=== PATIENT | female | born 1945 | race Two or more races ===

== ENCOUNTER 2017-04-14 10:44 | Outpatient (CLI) | payer OTHER ==
[~2017-04-14 10:44] MED LIST: ALDACTONE25 MG PO; AMBIEN10 MG; AMBIEN10 MG PO; AVAPRO75 MG PO; BENADRYL50 MG; BUDEPRION XL300 MG PO; CALTRATE 600600 MG; CARAFATE1 G; CARDIZEM CD180 MG; CARDIZEM60 MG; CARDURA1 MG PO; COLACE100 MG; CORDARONE I.50 MG/ML; COUMADIN10 MG; COZAAR25 MG; ELIQUIS5 MG PO; FLEET ENEMA EX230 ML RECTAL; HALOPERIDOL0.5 MG PO; MIRALAX12 EA PO; MONOPRIL40 MG PO; NEURONTIN300 MG PO; NORFLEX 30MG30 MG/ML IM; PEPCID40 MG; PREVACID15 MG; PROTONIX40 MG; SIMVASTATIN40 MG; SPIRINOLACTONE; TAMBOCOR100 MG PO; TORADOL60 MG IM; XANAX0.25 MG; ZANTAC150 MG PO; ZANTAC300 MG; ZOCOR40 MG PO
== END 2017-04-14 14:39 | disposition home or self-care (01) ==
LOC: TOM 10:44 → SONOGRAMA 10:44
DX: I11.9 Hypertensive heart disease without heart failure (principal)

== ENCOUNTER 2017-04-14 11:38 | Outpatient (CLI) | payer OTHER | END 2017-04-14 14:40 | disposition home or self-care (01) | LOC: RAD 11:38 | DX: D80.9 Immunodeficiency with predominantly antibody defects, unspecified (principal) ==

== ENCOUNTER 2017-04-15 07:14 | Outpatient (CLI) | payer OTHER | END 2017-04-15 07:44 | disposition home or self-care (01) | LOC: NUCLEAR 07:14 | DX: I27.29 Other secondary pulmonary hypertension (principal); I50.32 Chronic diastolic (congestive) heart failure; I11.9 Hypertensive heart disease without heart failure ==

== ENCOUNTER → 2017-06-22 | Emergency (ER) | payer OTHER ==
[~2017-06-22] VITALS: Ht 167.6 cm; Wt 77.1 kg
== END | disposition home or self-care (01) ==
LOC: ER 00:41
DX: R07.89 Other chest pain (principal); R20.8 Other disturbances of skin sensation; F41.9 Anxiety disorder, unspecified; T46.5X1A Poisoning by other antihypertensive drugs, accidental (unintentional), initial encounter; Y92.89 Other specified places as the place of occurrence of the external cause

== ENCOUNTER → 2017-07-21 | Outpatient (CLI) | payer OTHER | END | disposition home or self-care (01) | LOC: RAD 13:31 | DX: R06.09 Other forms of dyspnea (principal); I51.7 Cardiomegaly ==

== ENCOUNTER → 2017-08-02 | Outpatient (CLI) | payer OTHER | END | disposition home or self-care (01) | LOC: SONOGRAMA 09:07 | DX: E03.8 Other specified hypothyroidism (principal); E04.1 Nontoxic single thyroid nodule ==

== ENCOUNTER → 2017-08-08 | Outpatient (CLI) | payer OTHER | END | disposition home or self-care (01) | LOC: MRI 07:45 | DX: K86.2 Cyst of pancreas (principal); K30 Functional dyspepsia; K21.9 Gastro-esophageal reflux disease without esophagitis; E80.4 Gilbert syndrome; K44.9 Diaphragmatic hernia without obstruction or gangrene | CPT/HCPCS: 74183; A9579 ==

== ENCOUNTER 2017-08-10 11:25 | Outpatient (CLI) | payer OTHER | END 2017-08-10 14:48 | disposition home or self-care (01) | LOC: MAMO-SONO 11:25 | DX: Z13.1 Encounter for screening for diabetes mellitus (principal); Z87.898 Personal history of other specified conditions; N60.11 Diffuse cystic mastopathy of right breast ==

== ENCOUNTER 2017-08-18 10:51 | Outpatient (CLI) | payer OTHER | END 2017-08-18 14:30 | disposition home or self-care (01) | LOC: RAD 10:51 | DX: J45.20 Mild intermittent asthma, uncomplicated (principal) ==

== ENCOUNTER 2017-11-16 13:53 | Outpatient (CLI) | payer OTHER | END 2017-11-16 17:00 | disposition home or self-care (01) | LOC: TOM 13:53 | DX: M54.2 Cervicalgia (principal); M43.22 Fusion of spine, cervical region; M47.22 Other spondylosis with radiculopathy, cervical region ==

== ENCOUNTER → 2017-11-24 | Outpatient (CLI) | payer OTHER | END | disposition home or self-care (01) | LOC: NUCLEAR 09:08 | DX: M54.2 Cervicalgia (principal); M43.22 Fusion of spine, cervical region; M47.22 Other spondylosis with radiculopathy, cervical region | CPT/HCPCS: 78315; 78320; A9503 ==

== ENCOUNTER → 2018-01-16 | Outpatient (CLI) | payer OTHER | END | disposition home or self-care (01) | LOC: MRI 14:35 | DX: M54.5 Low back pain (principal); M54.16 Radiculopathy, lumbar region | CPT/HCPCS: 72148 ==

== ENCOUNTER 2018-01-19 07:13 | Day surgery (SDC) | payer OTHER | END 2018-01-19 10:40 | disposition home or self-care (01) | LOC: AMB-ENDOS 07:13 | DX: D12.4 Benign neoplasm of descending colon (principal); D12.8 Benign neoplasm of rectum ==

== ENCOUNTER 2018-01-23 13:03 | Outpatient (CLI) | payer OTHER | END 2018-01-23 13:08 | disposition home or self-care (01) | LOC: SONOGRAMA 13:03 | DX: N60.11 Diffuse cystic mastopathy of right breast (principal); N60.12 Diffuse cystic mastopathy of left breast ==

== ENCOUNTER 2018-02-20 15:06 | Outpatient (CLI) | payer OTHER | END 2018-02-20 15:14 | disposition home or self-care (01) | LOC: RAD 15:06 | DX: Z01.818 Encounter for other preprocedural examination (principal) ==

== ENCOUNTER 2018-03-20 09:41 | Outpatient (CLI) | payer OTHER | END 2018-03-20 15:00 | disposition home or self-care (01) | LOC: TOM 09:41 | DX: K62.5 Hemorrhage of anus and rectum (principal); K64.2 Third degree hemorrhoids; K58.1 Irritable bowel syndrome with constipation; K57.30 Diverticulosis of large intestine without perforation or abscess without bleeding; R15.2 Fecal urgency ==

== ENCOUNTER 2018-07-07 13:07 | Outpatient (CLI) | payer OTHER | END 2018-07-07 13:10 | disposition home or self-care (01) | LOC: RAD 13:07 | DX: J44.9 Chronic obstructive pulmonary disease, unspecified (principal) ==

== ENCOUNTER 2018-08-15 14:54 | Outpatient (CLI) | payer OTHER | END 2018-08-15 14:57 | disposition home or self-care (01) | LOC: MRI 14:54 | DX: M17.12 Unilateral primary osteoarthritis, left knee (principal) | CPT/HCPCS: 73721 ==

== ENCOUNTER → 2018-09-07 | Outpatient (CLI) | payer OTHER | END | disposition home or self-care (01) | LOC: MAMO-SONO 14:11 | DX: Z12.31 Encounter for screening mammogram for malignant neoplasm of breast (principal); N60.11 Diffuse cystic mastopathy of right breast; Z87.898 Personal history of other specified conditions ==

== ENCOUNTER 2018-11-10 09:02 | Outpatient (CLI) | payer OTHER | END 2018-11-10 09:08 | disposition home or self-care (01) | LOC: MAMO-SONO 09:02 → SONOGRAMA 09:02 | DX: R10.84 Generalized abdominal pain (principal); D49.0 Neoplasm of unspecified behavior of digestive system; R11.0 Nausea ==

== ENCOUNTER 2018-12-14 06:30 | Day surgery (SDC) | payer OTHER | END 2018-12-14 11:07 | disposition home or self-care (01) | LOC: AMB-ENDOS 06:30 | DX: D12.0 Benign neoplasm of cecum (principal); D12.2 Benign neoplasm of ascending colon ==

== ENCOUNTER 2019-02-02 00:14 | Emergency (ER) | payer OTHER ==
[~2019-02-02] VITALS: Ht 167.6 cm; Wt 86.2 kg
[2019-02-02] MEDS ORDERED: TOPROL XL50 M1 (00:27)
[2019-02-02] MEDS ORDERED: NEURONTIN800 MG (00:27)
[2019-02-02] MEDS ORDERED: NEXIUM20 M1 (00:27)
[2019-02-02] MEDS ORDERED: NORVASC5 MG (00:28)
[2019-02-02] MEDS ORDERED: ELIQUIS5 MG (00:30)
== END 2019-02-02 07:55 | disposition home or self-care (01) ==
LOC: ER 00:14
DX: N39.0 Urinary tract infection, site not specified (principal); M54.5 Low back pain

== ENCOUNTER 2019-03-14 11:58 | Outpatient (CLI) | payer OTHER ==
[~2019-03-14 11:58] MED LIST changes: +ELIQUIS5 MG; +NEURONTIN800 MG; +NEXIUM20 M1; +NORVASC5 MG; +TOPROL XL50 M1
== END 2019-03-14 16:13 | disposition home or self-care (01) ==
LOC: MRI 11:58
DX: M12.861 Other specific arthropathies, not elsewhere classified, right knee (principal); M12.862 Other specific arthropathies, not elsewhere classified, left knee; M43.17 Spondylolisthesis, lumbosacral region
CPT/HCPCS: 72158; 76881; A9575; 72148

== ENCOUNTER 2019-03-23 12:05 | Outpatient (CLI) | payer OTHER | END 2019-03-23 14:20 | disposition home or self-care (01) | LOC: RAD 12:05 | DX: M12.871 Other specific arthropathies, not elsewhere classified, right ankle and foot (principal) ==

== ENCOUNTER → 2019-04-12 | Outpatient (CLI) | payer OTHER | END | disposition home or self-care (01) | LOC: RAD 11:10 | DX: M54.2 Cervicalgia (principal) ==

== ENCOUNTER 2019-05-03 10:11 | Outpatient (CLI) | payer OTHER | END 2019-05-03 15:30 | disposition home or self-care (01) | LOC: MRI 10:11 | DX: D49.0 Neoplasm of unspecified behavior of digestive system (principal) | CPT/HCPCS: 74183; A9575; 74182 ==

== ENCOUNTER → 2019-05-30 | Outpatient (CLI) | payer OTHER | END | disposition home or self-care (01) | LOC: MRI 13:05 | DX: M23.222 Derangement of posterior horn of medial meniscus due to old tear or injury, left knee (principal); M25.562 Pain in left knee | CPT/HCPCS: 73721 ==

== ENCOUNTER 2019-06-25 12:30 | Outpatient (CLI) | payer OTHER | END 2019-06-25 16:18 | disposition home or self-care (01) | LOC: RAD 12:30 | DX: Z12.31 Encounter for screening mammogram for malignant neoplasm of breast (principal); Z12.39 Encounter for other screening for malignant neoplasm of breast ==

== ENCOUNTER 2019-06-25 13:15 | Outpatient (CLI) | payer OTHER | END 2019-06-25 13:25 | disposition home or self-care (01) | LOC: LAB 13:15 | DX: D68.8 Other specified coagulation defects (principal); E78.2 Mixed hyperlipidemia; N39.0 Urinary tract infection, site not specified; I10 Essential (primary) hypertension ==

== ENCOUNTER → 2019-09-13 | Outpatient (CLI) | payer OTHER | END | disposition home or self-care (01) | LOC: MAMO-SONO 09:45 → SONOGRAMA 09:50 → MAMO-SONO 10:45 | PROVIDERS: ATTEND Internal Medicine Gastroenterology | DX: R10.84 Generalized abdominal pain (principal) ==

== ENCOUNTER 2019-10-04 09:16 | Outpatient (CLI) | payer OTHER | END 2019-10-04 09:26 | disposition home or self-care (01) | LOC: NUCLEAR 09:16 | PROVIDERS: ATTEND Thoracic Surgery (Cardiothoracic Vascular Surgery) | DX: I73.9 Peripheral vascular disease, unspecified (principal) ==

== ENCOUNTER → 2019-10-04 | Outpatient (CLI) | payer OTHER | END | disposition home or self-care (01) | LOC: SONOGRAMA 10:28 | PROVIDERS: ATTEND Internal Medicine Sports Medicine | DX: E04.2 Nontoxic multinodular goiter (principal) ==

== ENCOUNTER 2019-11-13 13:35 | Outpatient (CLI) | payer OTHER | END 2019-11-13 13:39 | disposition home or self-care (01) | LOC: SONOGRAMA 13:35 | PROVIDERS: ATTEND Physical Medicine & Rehabilitation | DX: M75.111 Incomplete rotator cuff tear or rupture of right shoulder, not specified as traumatic (principal) ==

== ENCOUNTER 2019-12-27 10:51 | Inpatient (IN) | payer OTHER ==
[~2019-12-27] VITALS: Ht 167.6 cm; Wt 93.9 kg
[2019-12-28] MEDS ORDERED: GASTRACE CAPSU1 EACH (08:54)
== END 2020-01-15 12:50 | disposition home or self-care (01) | DRG 189 ==
LOC: ER 10:51 → SEC-K 19:59 → MEDJ 12-28 16:44
PROVIDERS: ADMIT Internal Medicine Cardiovascular Disease; ATTEND Internal Medicine Cardiovascular Disease
PROC: BW24ZZZ Computerized Tomography (CT Scan) of Chest and Abdomen (ICD-10-PCS; principal; 2019-12-27)
PROC: 4A033R1 Measurement of Arterial Saturation, Peripheral, Percutaneous Approach (ICD-10-PCS; 2019-12-27)
PROC: 3E0F7GC Introduction of Other Therapeutic Substance into Respiratory Tract, Via Natural or Artificial Opening (ICD-10-PCS; 2019-12-27)
PROC: BW21ZZZ Computerized Tomography (CT Scan) of Abdomen and Pelvis (ICD-10-PCS; 2019-12-28)
PROC: B246ZZZ Ultrasonography of Right and Left Heart (ICD-10-PCS; 2019-12-31)
PROC: BW40ZZZ Ultrasonography of Abdomen (ICD-10-PCS; 2020-01-03)
PROC: 02HV33Z Insertion of Infusion Device into Superior Vena Cava, Percutaneous Approach (ICD-10-PCS; 2020-01-06)
PROC: BB24ZZZ Computerized Tomography (CT Scan) of Bilateral Lungs (ICD-10-PCS; 2020-01-12)
PROC: BW21ZZZ Computerized Tomography (CT Scan) of Abdomen and Pelvis (ICD-10-PCS; 2020-01-12)
DX: J81.0 Acute pulmonary edema (principal); J90 Pleural effusion, not elsewhere classified; K86.1 Other chronic pancreatitis; N39.0 Urinary tract infection, site not specified; I43 Cardiomyopathy in diseases classified elsewhere; I48.91 Unspecified atrial fibrillation; I11.9 Hypertensive heart disease without heart failure; E04.2 Nontoxic multinodular goiter; D64.9 Anemia, unspecified; D53.1 Other megaloblastic anemias, not elsewhere classified; R07.89 Other chest pain; R10.32 Left lower quadrant pain; K57.30 Diverticulosis of large intestine without perforation or abscess without bleeding; K21.9 Gastro-esophageal reflux disease without esophagitis; K29.70 Gastritis, unspecified, without bleeding; K52.89 Other specified noninfective gastroenteritis and colitis; M54.5 Low back pain; M17.0 Bilateral primary osteoarthritis of knee; R50.9 Fever, unspecified; Z20.828 Contact with and (suspected) exposure to other viral communicable diseases; Z79.01 Long term (current) use of anticoagulants

== ENCOUNTER 2020-02-08 14:59 | Outpatient (CLI) | payer OTHER ==
[~2020-02-08 14:59] MED LIST changes: +GASTRACE CAPSU1 EACH
== END 2020-02-08 19:00 | disposition home or self-care (01) ==
LOC: TOM 14:59
PROVIDERS: ATTEND Internal Medicine Pulmonary Disease
DX: J90 Pleural effusion, not elsewhere classified (principal); R06.02 Shortness of breath

== ENCOUNTER → 2020-03-04 | Outpatient (CLI) | payer OTHER | END | disposition home or self-care (01) | LOC: RAD 03-03 12:15 | PROVIDERS: ATTEND Physical Medicine & Rehabilitation | DX: M19.042 Primary osteoarthritis, left hand (principal) ==

== ENCOUNTER 2020-03-17 11:59 | Outpatient (CLI) | payer OTHER | END 2020-03-17 13:54 | disposition home or self-care (01) | LOC: NUCLEAR 11:59 | PROVIDERS: ATTEND Physical Medicine & Rehabilitation | DX: I82.401 Acute embolism and thrombosis of unspecified deep veins of right lower extremity (principal); R22.41 Localized swelling, mass and lump, right lower limb ==

== ENCOUNTER → 2020-05-20 | Outpatient (CLI) | payer OTHER | END | disposition home or self-care (01) | LOC: RAD 13:36 | PROVIDERS: ATTEND Physical Medicine & Rehabilitation | DX: M17.12 Unilateral primary osteoarthritis, left knee (principal); M16.12 Unilateral primary osteoarthritis, left hip ==

== ENCOUNTER → 2020-05-27 | Outpatient (CLI) | payer OTHER | END | disposition home or self-care (01) | LOC: RAD 14:30 | PROVIDERS: ATTEND Internal Medicine | DX: I51.7 Cardiomegaly (principal); I50.32 Chronic diastolic (congestive) heart failure ==

== ENCOUNTER → 2020-06-04 | Outpatient (CLI) | payer OTHER | END | disposition home or self-care (01) | LOC: TOM 11:26 | PROVIDERS: ATTEND Internal Medicine Cardiovascular Disease | DX: K86.2 Cyst of pancreas (principal); R10.84 Generalized abdominal pain; K57.90 Diverticulosis of intestine, part unspecified, without perforation or abscess without bleeding ==

== ENCOUNTER 2020-06-30 15:32 | Outpatient (CLI) | payer OTHER | END 2020-06-30 15:40 | disposition home or self-care (01) | LOC: RAD 15:32 | PROVIDERS: ATTEND Physical Medicine & Rehabilitation | DX: M54.6 Pain in thoracic spine (principal); M54.5 Low back pain ==

== ENCOUNTER → 2020-07-04 | Outpatient (CLI) | payer OTHER | END | disposition home or self-care (01) | LOC: RAD 13:48 | PROVIDERS: ATTEND Internal Medicine | DX: I50.32 Chronic diastolic (congestive) heart failure (principal) ==

== ENCOUNTER → 2020-07-08 | Outpatient (CLI) | payer OTHER | END | disposition home or self-care (01) | LOC: NUCLEAR 15:02 | PROVIDERS: ATTEND Internal Medicine Rheumatology | DX: M81.0 Age-related osteoporosis without current pathological fracture (principal) ==

== ENCOUNTER 2020-07-10 13:48 | Outpatient (CLI) | payer OTHER | END 2020-07-10 14:04 | disposition home or self-care (01) | LOC: MAMO-SONO 13:48 | PROVIDERS: ATTEND Obstetrics & Gynecology | DX: Z12.31 Encounter for screening mammogram for malignant neoplasm of breast (principal); N60.11 Diffuse cystic mastopathy of right breast ==

== ENCOUNTER → 2020-08-14 | Outpatient (CLI) | payer OTHER | END | disposition home or self-care (01) | LOC: TOM 13:55 | PROVIDERS: ATTEND Internal Medicine Pulmonary Disease | DX: R06.02 Shortness of breath (principal); R91.1 Solitary pulmonary nodule ==

== ENCOUNTER 2020-11-03 14:31 | Outpatient (CLI) | payer OTHER | END 2020-11-03 14:36 | disposition home or self-care (01) | LOC: SONOGRAMA 14:31 | PROVIDERS: ATTEND Internal Medicine Sports Medicine | DX: E04.2 Nontoxic multinodular goiter (principal) ==

== ENCOUNTER 2020-12-25 07:54 | Outpatient (CLI) | payer OTHER | END 2020-12-25 08:15 | disposition home or self-care (01) | LOC: SONOGRAMA 07:54 → MAMO-SONO 08:00 → SONOGRAMA 08:15 | PROVIDERS: ATTEND Specialist/Technologist, Other Nephrology | DX: K86.2 Cyst of pancreas (principal); Q51.818 Other congenital malformations of uterus; R10.84 Generalized abdominal pain; R31.29 Other microscopic hematuria ==

== ENCOUNTER 2021-01-31 17:39 | Emergency (ER) | payer OTHER ==
[~2021-01-31] VITALS: Ht 167.6 cm; Wt 95.7 kg
[2021-01-31] MEDS ORDERED: NEURONTIN600 M1 (18:05)
[2021-01-31] MEDS ORDERED: BENICAR40 MG (18:06)
[2021-01-31] MEDS ORDERED: INTESTINEX680 M1 (18:06)
[2021-01-31] MEDS ORDERED: CARDURA8 MG (18:07)
== END 2021-01-31 21:33 | disposition home or self-care (01) ==
LOC: ER 17:39
DX: K52.89 Other specified noninfective gastroenteritis and colitis (principal); E86.0 Dehydration; E87.8 Other disorders of electrolyte and fluid balance, not elsewhere classified

== ENCOUNTER → 2021-03-02 11:42 | Outpatient (CLI) | payer OTHER ==
[~2021-03-02 11:42] MED LIST changes: +BENICAR40 MG; +CARDURA8 MG; +INTESTINEX680 M1; +NEURONTIN600 M1
== END | disposition home or self-care (01) ==
LOC: NUCLEAR 11:42
PROVIDERS: ATTEND Internal Medicine Cardiovascular Disease
DX: I87.2 Venous insufficiency (chronic) (peripheral) (principal)

== ENCOUNTER 2021-03-02 13:02 | Outpatient (CLI) | payer OTHER | END 2021-03-02 13:15 | disposition home or self-care (01) | LOC: SONOGRAMA 13:02 | PROVIDERS: ATTEND Internal Medicine Cardiovascular Disease | DX: M77.31 Calcaneal spur, right foot (principal); M12.88 Other specific arthropathies, not elsewhere classified, other specified site; M46.47 Discitis, unspecified, lumbosacral region ==

== ENCOUNTER 2021-04-21 10:48 | Outpatient (CLI) | payer OTHER | END 2021-04-21 10:55 | disposition home or self-care (01) | LOC: TOM 10:48 | PROVIDERS: ATTEND Internal Medicine Gastroenterology | DX: K57.90 Diverticulosis of intestine, part unspecified, without perforation or abscess without bleeding (principal); Q45.3 Other congenital malformations of pancreas and pancreatic duct; R10.84 Generalized abdominal pain ==

== ENCOUNTER 2021-07-06 09:00 | Outpatient (CLI) | payer OTHER | END 2021-07-06 09:15 | disposition home or self-care (01) | LOC: PPH VACUNA 09:00 | PROVIDERS: ATTEND Emergency Medicine Pediatric Emergency Medicine | DX: Z23 Encounter for immunization (principal) ==

== ENCOUNTER 2021-07-29 15:08 | Outpatient (CLI) | payer OTHER | END 2021-07-29 15:20 | disposition home or self-care (01) | LOC: RAD 15:08 | PROVIDERS: ATTEND Physical Medicine & Rehabilitation | DX: M54.50 Low back pain, unspecified (principal) ==

== ENCOUNTER 2021-08-28 10:18 | Outpatient (CLI) | payer OTHER | END 2021-08-28 10:40 | disposition home or self-care (01) | LOC: TOM 10:18 | PROVIDERS: ATTEND Internal Medicine Pulmonary Disease | DX: R91.1 Solitary pulmonary nodule (principal); R06.02 Shortness of breath; M46.47 Discitis, unspecified, lumbosacral region ==

== ENCOUNTER 2021-09-21 12:16 | Inpatient (IN) | payer OTHER ==
[~2021-09-21] VITALS: Ht 157.5 cm; Wt 99.3 kg
[2021-09-21] MEDS ORDERED: TOPROL XL50 M1 PO (12:35)
[2021-09-21] MEDS ORDERED: NORVASC5 MG PO (12:36)
[2021-09-21] MEDS ORDERED: CLONAZEPAM0.5 M1 PO (12:36)
[2021-09-21] MEDS ORDERED: ELIQUIS5 MG PO (12:38)
[2021-09-22] MEDS ORDERED: GABAPENTIN400 MG (08:45)
[2021-09-22] MEDS ORDERED: ESOMEPRAZOLE MA40 MG (08:47)
== END 2021-10-01 21:35 | disposition home or self-care (01) | DRG 603 ==
LOC: EMR PED 12:16 → ER 12:16 → MEDI 15:24
PROVIDERS: ADMIT Specialist; ATTEND Specialist
PROC: B54DZZZ Ultrasonography of Bilateral Lower Extremity Veins (ICD-10-PCS; 2021-09-21)
PROC: B44HZZZ Ultrasonography of Bilateral Lower Extremity Arteries (ICD-10-PCS; principal; 2021-09-23)
DX: L03.115 Cellulitis of right lower limb (principal); I83.215 Varicose veins of right lower extremity with both ulcer other part of foot and inflammation; Z68.41 Body mass index [BMI] 40.0-44.9, adult; R60.0 Localized edema; I11.9 Hypertensive heart disease without heart failure; I48.91 Unspecified atrial fibrillation; E66.01 Morbid (severe) obesity due to excess calories; Z20.822 Contact with and (suspected) exposure to COVID-19

== ENCOUNTER 2021-11-09 15:24 | Outpatient (CLI) | payer OTHER ==
[~2021-11-09 15:24] MED LIST changes: +CLONAZEPAM0.5 M1 PO; +ESOMEPRAZOLE MA40 MG; +GABAPENTIN400 MG; +NORVASC5 MG PO; +TOPROL XL50 M1 PO
== END 2021-11-09 16:00 | disposition home or self-care (01) ==
LOC: RAD 15:24
PROVIDERS: ATTEND Physical Medicine & Rehabilitation
DX: M25.511 Pain in right shoulder (principal); M25.512 Pain in left shoulder

== ENCOUNTER 2021-11-10 12:05 | Outpatient (CLI) | payer OTHER | END 2021-11-10 12:09 | disposition home or self-care (01) | LOC: LAB 12:05 | PROVIDERS: ATTEND Specialist | DX: L97.919 Non-pressure chronic ulcer of unspecified part of right lower leg with unspecified severity (principal) ==

== ENCOUNTER 2021-12-25 12:39 | Outpatient (CLI) | payer OTHER | END 2021-12-25 15:53 | disposition home or self-care (01) | LOC: RAD 12:39 | PROVIDERS: ATTEND Specialist | DX: M47.812 Spondylosis without myelopathy or radiculopathy, cervical region (principal); M51.36 Other intervertebral disc degeneration, lumbar region ==

== ENCOUNTER 2021-12-30 09:31 | Outpatient (CLI) | payer OTHER | END 2021-12-30 15:50 | disposition home or self-care (01) | LOC: TOM 09:31 | PROVIDERS: ATTEND Specialist | DX: M48.02 Spinal stenosis, cervical region (principal); M47.812 Spondylosis without myelopathy or radiculopathy, cervical region ==

== ENCOUNTER 2022-02-11 08:05 | Outpatient (CLI) | payer OTHER | END 2022-02-11 08:06 | disposition home or self-care (01) | LOC: NUCLEAR 08:05 | PROVIDERS: ATTEND Thoracic Surgery (Cardiothoracic Vascular Surgery) | DX: I87.2 Venous insufficiency (chronic) (peripheral) (principal); Z88.1 Allergy status to other antibiotic agents; Z91.011 Allergy to milk products ==

== ENCOUNTER 2022-05-04 16:41 | Inpatient (IN) | payer OTHER ==
[~2022-05-04] VITALS: Ht 152.4 cm; Wt 127.0 kg
== END 2022-06-18 13:24 | disposition home health service (06) | DRG 570 ==
LOC: ER 16:41 → MEDI 18:49
PROVIDERS: ADMIT Internal Medicine; ATTEND Internal Medicine
PROC: B44HZZZ Ultrasonography of Bilateral Lower Extremity Arteries (ICD-10-PCS; 2022-05-04)
PROC: 0JBN0ZZ Excision of Right Lower Leg Subcutaneous Tissue and Fascia, Open Approach (ICD-10-PCS; principal; 2022-05-05)
PROC: 30233N1 Transfusion of Nonautologous Red Blood Cells into Peripheral Vein, Percutaneous Approach (ICD-10-PCS; 2022-05-06)
PROC: 0JDN0ZZ Extraction of Right Lower Leg Subcutaneous Tissue and Fascia, Open Approach (ICD-10-PCS; 2022-05-12)
PROC: 0JDN0ZZ Extraction of Right Lower Leg Subcutaneous Tissue and Fascia, Open Approach (ICD-10-PCS; 2022-05-19)
PROC: 02H633Z Insertion of Infusion Device into Right Atrium, Percutaneous Approach (ICD-10-PCS; 2022-05-20)
PROC: 0JDN0ZZ Extraction of Right Lower Leg Subcutaneous Tissue and Fascia, Open Approach (ICD-10-PCS; 2022-05-26)
PROC: 30243N1 Transfusion of Nonautologous Red Blood Cells into Central Vein, Percutaneous Approach (ICD-10-PCS; 2022-05-27)
PROC: BW2110Z Computerized Tomography (CT Scan) of Abdomen and Pelvis using Low Osmolar Contrast, Unenhanced and Enhanced (ICD-10-PCS; 2022-05-28)
PROC: 0JDN0ZZ Extraction of Right Lower Leg Subcutaneous Tissue and Fascia, Open Approach (ICD-10-PCS; 2022-06-02)
PROC: 0JDN0ZZ Extraction of Right Lower Leg Subcutaneous Tissue and Fascia, Open Approach (ICD-10-PCS; 2022-06-09)
PROC: 4A12X4Z Monitoring of Cardiac Electrical Activity, External Approach (ICD-10-PCS; 2022-06-12)
PROC: 0JDN0ZZ Extraction of Right Lower Leg Subcutaneous Tissue and Fascia, Open Approach (ICD-10-PCS; 2022-06-16)
DX: L03.115 Cellulitis of right lower limb (principal); D60.8 Other acquired pure red cell aplasias; D61.1 Drug-induced aplastic anemia; D61.811 Other drug-induced pancytopenia; E87.1 Hypo-osmolality and hyponatremia; I13.0 Hypertensive heart and chronic kidney disease with heart failure and stage 1 through stage 4 chronic kidney disease, or unspecified chronic kidney disease; Z68.42 Body mass index [BMI] 45.0-49.9, adult; I50.32 Chronic diastolic (congestive) heart failure; I96 Gangrene, not elsewhere classified; I48.20 Chronic atrial fibrillation, unspecified; E27.49 Other adrenocortical insufficiency; J91.8 Pleural effusion in other conditions classified elsewhere; J81.1 Chronic pulmonary edema; L97.519 Non-pressure chronic ulcer of other part of right foot with unspecified severity; S81.011A Laceration without foreign body, right knee, initial encounter; I87.2 Venous insufficiency (chronic) (peripheral); D64.9 Anemia, unspecified; K58.0 Irritable bowel syndrome with diarrhea; E83.42 Hypomagnesemia; E87.6 Hypokalemia; E83.39 Other disorders of phosphorus metabolism; B37.2 Candidiasis of skin and nail; R59.0 Localized enlarged lymph nodes; S30.1XXA Contusion of abdominal wall, initial encounter; R53.81 Other malaise; N18.9 Chronic kidney disease, unspecified; G47.33 Obstructive sleep apnea (adult) (pediatric); E66.09 Other obesity due to excess calories; G62.9 Polyneuropathy, unspecified; Z53.29 Procedure and treatment not carried out because of patient's decision for other reasons; B96.5 Pseudomonas (aeruginosa) (mallei) (pseudomallei) as the cause of diseases classified elsewhere; B95.2 Enterococcus as the cause of diseases classified elsewhere; B96.6 Bacteroides fragilis [B. fragilis] as the cause of diseases classified elsewhere; B96.89 Other specified bacterial agents as the cause of diseases classified elsewhere; W01.0XXA Fall on same level from slipping, tripping and stumbling without subsequent striking against object, initial encounter; Y93.9 Activity, unspecified; Y92.513 Shop (commercial) as the place of occurrence of the external cause; Z88.1 Allergy status to other antibiotic agents; Z79.01 Long term (current) use of anticoagulants; Z91.81 History of falling

== ENCOUNTER 2022-10-13 09:37 | Outpatient (CLI) | payer OTHER | END 2022-10-13 09:39 | disposition home or self-care (01) | LOC: NUCLEAR 09:37 | PROVIDERS: ATTEND Internal Medicine Hematology & Oncology | DX: M15.0 Primary generalized (osteo)arthritis (principal) | CPT/HCPCS: 78315; A9503 ==

== ENCOUNTER 2022-10-29 13:20 | Outpatient (CLI) | payer OTHER | END 2022-10-29 13:35 | disposition home or self-care (01) | LOC: PPH VACUNA 13:20 | PROVIDERS: ATTEND Emergency Medicine Pediatric Emergency Medicine | DX: Z23 Encounter for immunization (principal) ==

== ENCOUNTER 2022-12-14 13:53 | Outpatient (CLI) | payer OTHER | END 2022-12-14 14:00 | disposition home or self-care (01) | LOC: TOM 13:53 | PROVIDERS: ATTEND Psychiatry & Neurology Clinical Neurophysiology | DX: D32.0 Benign neoplasm of cerebral meninges (principal) ==

== ENCOUNTER 2023-01-03 11:43 | Outpatient (CLI) | payer OTHER | END 2023-01-03 14:20 | disposition home or self-care (01) | LOC: SONOGRAMA 11:43 | PROVIDERS: ATTEND Specialist | DX: S86.111A Strain of other muscle(s) and tendon(s) of posterior muscle group at lower leg level, right leg, initial encounter (principal); S86.811A Strain of other muscle(s) and tendon(s) at lower leg level, right leg, initial encounter ==

== ENCOUNTER 2023-01-25 14:53 | Outpatient (CLI) | payer OTHER | END 2023-01-25 14:59 | disposition home or self-care (01) | LOC: RAD 14:53 | PROVIDERS: ATTEND Internal Medicine | DX: M54.59 Other low back pain (principal) ==

== ENCOUNTER 2023-02-02 13:52 | Outpatient (CLI) | payer OTHER | END 2023-02-02 14:20 | disposition home or self-care (01) | LOC: SONOGRAMA 13:52 | PROVIDERS: ATTEND Internal Medicine | DX: R10.9 Unspecified abdominal pain (principal); N18.30 Chronic kidney disease, stage 3 unspecified; R31.9 Hematuria, unspecified; E04.1 Nontoxic single thyroid nodule; E04.9 Nontoxic goiter, unspecified ==

== ENCOUNTER 2023-04-25 07:14 | Outpatient (CLI) | payer OTHER | END 2023-04-25 11:06 | disposition home or self-care (01) | LOC: TOM 07:14 | PROVIDERS: ATTEND Internal Medicine Gastroenterology | DX: R10.11 Right upper quadrant pain (principal); R10.31 Right lower quadrant pain ==

== ENCOUNTER → 2023-04-28 | Outpatient (CLI) | payer OTHER | END | disposition home or self-care (01) | LOC: RAD 14:40 | PROVIDERS: ATTEND Surgery | DX: K64.2 Third degree hemorrhoids (principal); K58.1 Irritable bowel syndrome with constipation; K57.30 Diverticulosis of large intestine without perforation or abscess without bleeding; N81.6 Rectocele; Z86.010 Personal history of colon polyps ==

== ENCOUNTER 2023-04-29 12:42 | Outpatient (CLI) | payer OTHER | END 2023-04-29 14:08 | disposition home or self-care (01) | LOC: EKG 12:42 | PROVIDERS: ATTEND Surgery | DX: I10 Essential (primary) hypertension (principal) ==

== ENCOUNTER 2023-05-18 06:14 | Day surgery (SDC) | payer OTHER ==
[~2023-05-18 06:14] MED LIST changes: +CARDURA8 MG PO; +CLONAZEPAM1 M1 PO; +PEPCID AC20 MG PO
[2023-05-18] MEDS ORDERED: POVIDONE-IODINE 118 ML BOTT TOP ONE (06:59)
[2023-05-18] MEDS ORDERED: METRONIDAZOLE/SODIUM CHLORIDE 500 MG/100 ML PIGGYBACK IV ONE ×2 (06:59→08:00)
[2023-05-18] MEDS ORDERED: CEFTRIAXONE SODIUM 2,000 MG VIAL ONE (07:00)
[2023-05-18] MEDS ORDERED: DIBUCAINE 15 GM OINT..GM. TUBE ONE (07:00)
[2023-05-18] MEDS ORDERED: HEMOSTATIC MATRIX 1 KIT KIT TOP ONE ×2 (07:00→08:00)
[2023-05-18] MEDS ORDERED: BUPIVACAINE LIPOSOME/PF 266 MG/20 ML VIAL IJ ONE ×2 (07:56→08:00)
[2023-05-18] MEDS ORDERED: CEFTRIAXONE SODIUM 2,000 MG VIAL IV ONE (08:00)
[2023-05-18] MEDS ORDERED: DIBUCAINE 15 GM OINT..GM. TUBE RECTAL ONE (08:00)
== END 2023-05-18 12:45 | disposition home or self-care (01) ==
LOC: CIR.AMB 06:14
PROVIDERS: ATTEND Surgery
DX: K64.2 Third degree hemorrhoids (principal); K64.8 Other hemorrhoids; K64.4 Residual hemorrhoidal skin tags; K62.5 Hemorrhage of anus and rectum; Z91.011 Allergy to milk products; Z88.8 Allergy status to other drugs, medicaments and biological substances

== ENCOUNTER 2023-05-29 14:07 | Inpatient (IN) | payer OTHER ==
[~2023-05-29] VITALS: Ht 152.4 cm; Wt 136.1 kg
[2023-05-29] MEDS ORDERED: BUMETANIDE1 MG (14:25)
[2023-05-29] MEDS ORDERED: LASIX20 MG PO (14:48)
[2023-05-29] MEDS ORDERED: SYMAX0.125 MG PO (14:51)
[2023-05-29] MEDS ORDERED: ZANAFLEX4 M1 PO (14:52)
[2023-05-29] MEDS ORDERED: PHENERGAN25 MG PO (14:56)
[2023-05-29] MEDS ORDERED: SINGULAIR10 MG PO (14:56)
[2023-05-29] MEDS ORDERED: NORVASC2.5 M1 PO (14:57)
[2023-05-29] MEDS ORDERED: NU-MAG71.5 MG PO (14:57)
[2023-05-29] MEDS ORDERED: DOLOGESIC 500-1 EACH PO (14:57)
[2023-05-29] MEDS ORDERED: AMLODIPINE BESYL5 MG PO (14:58)
[2023-05-29 15:59] LABS: HEMOGLOBIN 12.9 g/dL (12.0-15.00); MEAN CELL VOLUME 90.3 fL (80.00-100.00); MEAN CORPUSCULAR HEMOGLOBIN 31.5 pg (27.00-32.0); MEAN CORPUSCULAR HGB CONC 34.8 g/dl (32.0-36.0); PLATELET COUNT 176 K/uL (150-450); RED CELL DISTRIBUTION WIDTH 17.6 % (11.5-14.5)
[2023-05-29 16:21] LABS: ALBUMIN 3.1 gm/dL (3.4-5.0); BILIRUBIN TOTAL 3.73 mg/dL (0.3-1.2); BILIRUBIN,CONJUGATED 0.81 mg/dL (0.0-0.2); BILIRUBIN,UNCONJUGATED 2.92 mg/dL (0.0-0.6); CALCIUM 9.2 mg/dL (8.5-10.1); CREATININE SERUM 1.03 mg/dL (0.55-1.02); GFR 51.82; POTASSIUM 4.11 mEq/L (3.5-5.1); TOTAL PROTEIN 6.2 gm/dL (6.4-8.2)
[2023-05-29] MEDS ORDERED: 0.9 % SODIUM CHLORIDE 1,000 ML IV SCH ×2 (21:00→23:45)
[2023-05-29] MEDS ORDERED: ACETAMINOPHEN 500 MG GEL..CAP PO PRN (23:45)
[2023-05-29] MEDS ORDERED: ONDANSETRON HCL 4 MG in 0.9 % SODIUM CHLORIDE 50 ML IV PRN (23:45)
[2023-05-29] MEDS ORDERED: VANCOMYCIN HCL 1,000 MG VIAL IV SCH (23:49)
[2023-05-29] MEDS ORDERED: CEFEPIME HCL 1,000 MG in 0.9 % SODIUM CHLORIDE 50 ML IV SCH (23:50)
[2023-05-30 01:26] LABS: ABG PH 7.447 (7.35-7.45); ABG PO2 107.3 mmHg (80-100); BASE EXCESS -2.5 mmol/l; BICARBONATE 20.3 mmol/l (23-25); SaO2 98.3 %; Tco2 21.2 mmol/l; allen test SATISFACTORY; o2 21 %; puncture site RADIAL LEFT
[2023-05-30 02:08] LABS: INR 1.14; PARTIAL THROMBOPLASTIN TIME 27.3 SECONDS (22.0-34.0); PROTHROMBIN TIME 11.9 SECONDS (9.0-11.5)
[2023-05-30 06:33] LABS: HEMATOCRIT 32.8 % (36.0-45.00); HEMOGLOBIN 11.5 g/dL (12.0-15.00); MEAN CELL VOLUME 90.4 fL (80.00-100.00); MEAN CORPUSCULAR HEMOGLOBIN 31.7 pg (27.00-32.0); MEAN CORPUSCULAR HGB CONC 35.1 g/dl (32.0-36.0); PLATELET COUNT 169 K/uL (150-450); RED BLOOD COUNT 3.63 M/uL (4.00-6.00); RED CELL DISTRIBUTION WIDTH 16.7 % (11.5-14.5)
[2023-05-30 07:22] LABS: ALBUMIN 2.6 gm/dL (3.4-5.0); BILIRUBIN TOTAL 2.7 mg/dL (0.3-1.2); CALCIUM 8.3 mg/dL (8.5-10.1); CREATININE SERUM 1.28 mg/dL (0.55-1.02); GFR 40.33; GLOBULINA 2.2 G/DL (2.4-3.5); POTASSIUM 4.55 mEq/L (3.5-5.1); TOTAL PROTEIN 4.8 gm/dL (6.4-8.2); TSH 0.758 uIU/mL (0.358-3.74)
[2023-05-30] MEDS ORDERED: ENOXAPARIN SODIUM 40 MG/0.4 ML SYRINGE SUBCUTANEO SCH (09:00)
[2023-05-30] MEDS ORDERED: FAMOTIDINE/PF 20 MG in 0.9 % SODIUM CHLORIDE 8 ML IV PUSH SCH (09:00)
[2023-05-30] MEDS ORDERED: AMLODIPINE BESYLATE 5 MG TABLET PO SCH (09:00)
[2023-05-30] MEDS ORDERED: METOPROLOL SUCCINATE 25 MG TAB.SR.24H PO SCH (09:00)
[2023-05-30] MEDS ORDERED: FUROsemide 20 MG/2 ML VIAL IV SCH ×2 (09:00→16:53)
[2023-05-30] MEDS ORDERED: METOPROLOL SUCCINATE 50 MG TAB.SR.24H PO SCH (09:00)
[2023-05-30] MEDS ORDERED: GABAPENTIN 400 MG CAPSULE PO SCH (09:00)
[2023-05-30] MEDS ORDERED: PREDNISONE 5 MG TABLET PO SCH (09:47)
[2023-05-30] MEDS ORDERED: AMINO ACIDS/PROTEIN HYDROLYS 30 ML BLIST.PACK PO SCH (13:00)
[2023-05-30] MEDS ORDERED: SODIUM HYPOCHLORITE 1OZ TOP SCH (13:09)
[2023-05-30] MEDS ORDERED: NYSTATIN 15 GM,SILVER SULFADIAZINE 50 GM,ZINC OXIDE 30 GM TOP SCH (13:50)
[2023-05-30 15:26] LABS: URINE APPEARANCE Cloudy; URINE BILIRRUBIN Negative (NEGATIVE); URINE BLOOD Moderate; URINE COLOR Yellow; URINE GLUCOSE Negative (NEGATIVE); URINE LEUKOCYTE Negative; URINE NITRATE Negative; URINE PROTEIN 30 (NEGATIVE); URINE UROBILINOGEN 0.2 E.U./dl
[2023-05-30 15:29] LABS: URINE BACTERIA 55.4 uL (0.0-1933); URINE EPITHELIAL CELLS 14.5 uL (0.0-38.8); URINE RBC 51.7 uL (0.0-20.8); URINE WBC 16.8 uL (0.0-23.2)
[2023-05-30] MEDS ORDERED: APIXABAN 5 MG TABLET PO SCH (17:00)
[2023-05-30 18:27] LABS: C-REACTIVE PROTEIN 29.1 MG/DL (0.00-0.29)
[2023-05-31 06:43] LABS: HEMATOCRIT 28.5 % (36.0-45.00); HEMOGLOBIN 9.9 g/dL (12.0-15.00); MEAN CELL VOLUME 91.1 fL (80.00-100.00); MEAN CORPUSCULAR HEMOGLOBIN 31.7 pg (27.00-32.0); MEAN CORPUSCULAR HGB CONC 34.8 g/dl (32.0-36.0); PLATELET COUNT 151 K/uL (150-450); RED BLOOD COUNT 3.12 M/uL (4.00-6.00); RED CELL DISTRIBUTION WIDTH 17.5 % (11.5-14.5)
[2023-05-31 06:58] LABS: ALBUMIN 2.2 gm/dL (3.4-5.0); BILIRUBIN TOTAL 1.56 mg/dL (0.3-1.2); CALCIUM 7.7 mg/dL (8.5-10.1); CREATININE SERUM 0.67 mg/dL (0.55-1.02); GFR 85.12; GLOBULINA 2.1 G/DL (2.4-3.5); MAGNESIUM 2.1 mg/dL (1.8-2.4); PHOSPHOROUS 2.9 mg/dL (2.5-4.9); POTASSIUM 3.86 mEq/L (3.5-5.1); TOTAL PROTEIN 4.3 gm/dL (6.4-8.2)
[2023-05-31] MEDS ORDERED: METOPROLOL SUCCINATE 50 MG TAB.SR.24H PO SCH (09:00)
[2023-05-31] MEDS ORDERED: SODIUM HYPOCHLORITE 1OZ TOP SCH (09:00)
[2023-05-31] MEDS ORDERED: METHYLPREDNISOLONE SOD SUCC 40 MG VIAL IV SCH (09:00)
[2023-05-31] MEDS ORDERED: VANCOMYCIN HCL 1,000 MG VIAL IV SCH (21:00)
[2023-06-01 06:49] LABS: HEMATOCRIT 27.4 % (36.0-45.00); HEMOGLOBIN 9.5 g/dL (12.0-15.00); MEAN CELL VOLUME 92.5 fL (80.00-100.00); MEAN CORPUSCULAR HGB CONC 34.6 g/dl (32.0-36.0); PLATELET COUNT 175 K/uL (150-450); RED BLOOD COUNT 2.96 M/uL (4.00-6.00)
[2023-06-01 07:05] LABS: ALBUMIN 2.3 gm/dL (3.4-5.0); BILIRUBIN TOTAL 1.17 mg/dL (0.3-1.2); CALCIUM 8.5 mg/dL (8.5-10.1); CREATININE SERUM 0.63 mg/dL (0.55-1.02); GFR 91.39; GLOBULINA 2.6 G/DL (2.4-3.5); POTASSIUM 4.44 mEq/L (3.5-5.1); TOTAL PROTEIN 4.9 gm/dL (6.4-8.2)
[2023-06-01] MEDS ORDERED: FAMOTIDINE/PF 20 MG/2 ML VIAL ONE (08:55)
[2023-06-01] MEDS ORDERED: FUROsemide 20 MG/2 ML VIAL IV SCH (09:00)
[2023-06-01] MEDS ORDERED: IRON FUM,PS/FOLIC/BCOMP,C NO.9 1 CAP CAPSULE PO SCH (09:00)
[2023-06-01] MEDS ORDERED: CHLORHEXIDINE GLUCONATE 120 ML BOTTLE TOP ONE (09:49)
[2023-06-01] MEDS ORDERED: CEFEPIME HCL 1,000 MG in 0.9 % SODIUM CHLORIDE 50 ML IV SCH (17:00)
[2023-06-01] MEDS ORDERED: VANCOMYCIN HCL 1,000 MG VIAL IV SCH (21:00)
[2023-06-01] MEDS ORDERED: FAMOtidine 20 MG TABLET PO SCH (21:00)
[2023-06-01] MEDS ORDERED: ONDANSETRON HCL 2 MG/ML VIAL ONE (23:59)
[2023-06-02] MEDS ORDERED: FUROsemide 20 MG/2 ML VIAL IV SCH (09:00)
[2023-06-02 09:43] LABS: ALBUMIN 2.5 gm/dL (3.4-5.0); CALCIUM 9.1 mg/dL (8.5-10.1); CREATININE SERUM 0.67 mg/dL (0.55-1.02); GFR 85.12; PHOSPHOROUS 2.6 mg/dL (2.5-4.9); POTASSIUM 3.86 mEq/L (3.5-5.1)
[2023-06-02] MEDS ORDERED: TRAMADOL HCL 50 MG TABLET PO PRN (10:15)
[2023-06-02] MEDS ORDERED: METHYLPREDNISOLONE SOD SUCC 40 MG VIAL IV SCH (21:00)
[2023-06-02] MEDS ORDERED: CLONAZEPAM 0.5 MG TABLET PO SCH (21:30)
[2023-06-03 08:20] LABS: HEMOGLOBIN 10.1 g/dL (12.0-15.00); MEAN CELL VOLUME 91.6 fL (80.00-100.00); MEAN CORPUSCULAR HEMOGLOBIN 31.8 pg (27.00-32.0); MEAN CORPUSCULAR HGB CONC 34.7 g/dl (32.0-36.0); PLATELET COUNT 213 K/uL (150-450); RED BLOOD COUNT 3.16 M/uL (4.00-6.00); RED CELL DISTRIBUTION WIDTH 16.7 % (11.5-14.5)
[2023-06-03 09:30] LABS: ALBUMIN 2.7 gm/dL (3.4-5.0); BILIRUBIN TOTAL 1.07 mg/dL (0.3-1.2); CALCIUM 8.8 mg/dL (8.5-10.1); CREATININE SERUM 0.53 mg/dL (0.55-1.02); GFR 111.57; GLOBULINA 2.6 G/DL (2.4-3.5); MAGNESIUM 1.9 mg/dL (1.8-2.4); PHOSPHOROUS 2.8 mg/dL (2.5-4.9); POTASSIUM 4.03 mEq/L (3.5-5.1); TOTAL PROTEIN 5.3 gm/dL (6.4-8.2)
[2023-06-03] MEDS ORDERED: GABAPENTIN 400 MG CAPSULE PO STA (16:49)
[2023-06-03] MEDS ORDERED: TRAMADOL HCL 50 MG TABLET PO PRN (17:20)
[2023-06-03] MEDS ORDERED: GABAPENTIN 300 MG CAPSULE PO SCH (21:00)
[2023-06-04 08:53] LABS: CALCIUM 8.8 mg/dL (8.5-10.1); CREATININE SERUM 0.58 mg/dL (0.55-1.02); GFR 100.54; POTASSIUM 3.67 mEq/L (3.5-5.1)
[2023-06-04] MEDS ORDERED: GABAPENTIN 400 MG CAPSULE PO SCH (09:00)
[2023-06-04] MEDS ORDERED: LACTULOSE 20 G/30 ML BLIST.PACK PO SCH (17:00)
[2023-06-05] MEDS ORDERED: PREDNISONE 5 MG TABLET PO SCH (09:00)
[2023-06-05] MEDS ORDERED: POLYETHYLENE GLYCOL 3350 17 GM BLIST.PACK PO SCH (09:00)
[2023-06-05] MEDS ORDERED: GABAPENTIN 300 MG CAPSULE PO SCH (21:00)
[2023-06-06] MEDS ORDERED: DIATRIZOATE MEGLUMINE, SODIUM 30 ML BOTTLE PO ONE (06:00)
[2023-06-06 07:49] LABS: HEMATOCRIT 33.1 % (36.0-45.00); MEAN CELL VOLUME 92.7 fL (80.00-100.00); MEAN CORPUSCULAR HEMOGLOBIN 30.8 pg (27.00-32.0); MEAN CORPUSCULAR HGB CONC 33.2 g/dl (32.0-36.0); PLATELET COUNT 261 K/uL (150-450); RED BLOOD COUNT 3.57 M/uL (4.00-6.00); RED CELL DISTRIBUTION WIDTH 16.6 % (11.5-14.5)
[2023-06-06 08:15] LABS: ALBUMIN 2.3 gm/dL (3.4-5.0); BILIRUBIN TOTAL 1.38 mg/dL (0.3-1.2); BILIRUBIN,CONJUGATED 0.35 mg/dL (0.0-0.2); BILIRUBIN,UNCONJUGATED 1.03 mg/dL (0.0-0.6); CALCIUM 8.7 mg/dL (8.5-10.1); CREATININE SERUM 0.55 mg/dL (0.55-1.02); GFR 106.9; MAGNESIUM 1.8 mg/dL (1.8-2.4); PHOSPHOROUS 2.5 mg/dL (2.5-4.9); POTASSIUM 3.44 mEq/L (3.5-5.1); TOTAL PROTEIN 4.6 gm/dL (6.4-8.2)
[2023-06-06] MEDS ORDERED: POTASSIUM BICARBONATE/CIT AC 25 MEQ TABLET.EFF PO SCH ×2 (09:00→10:25)
[2023-06-06] MEDS ORDERED: POLYETHYLENE GLYCOL 3350 17 GM BLIST.PACK PO SCH (09:00)
[2023-06-06] MEDS ORDERED: FUROsemide 20 MG/2 ML VIAL IV SCH (09:00)
[2023-06-06] MEDS ORDERED: DOCUSATE SODIUM 100MG CAP PO SCH (17:00)
[2023-06-06] MEDS ORDERED: GABAPENTIN 400 MG CAPSULE PO SCH (21:00)
[2023-06-07 06:54] LABS: HEMATOCRIT 32.8 % (36.0-45.00); HEMOGLOBIN 11.1 g/dL (12.0-15.00); MEAN CELL VOLUME 92.4 fL (80.00-100.00); MEAN CORPUSCULAR HEMOGLOBIN 31.2 pg (27.00-32.0); MEAN CORPUSCULAR HGB CONC 33.8 g/dl (32.0-36.0); PLATELET COUNT 235 K/uL (150-450); RED BLOOD COUNT 3.55 M/uL (4.00-6.00); RED CELL DISTRIBUTION WIDTH 16.9 % (11.5-14.5)
[2023-06-07 07:05] LABS: ALBUMIN 2.2 gm/dL (3.4-5.0); BILIRUBIN TOTAL 1.54 mg/dL (0.3-1.2); CALCIUM 8.6 mg/dL (8.5-10.1); CREATININE SERUM 0.52 mg/dL (0.55-1.02); GFR 114.04; GLOBULINA 2.5 G/DL (2.4-3.5); POTASSIUM 3.34 mEq/L (3.5-5.1); TOTAL PROTEIN 4.7 gm/dL (6.4-8.2)
[2023-06-07] MEDS ORDERED: POTASSIUM CHLORIDE IN WATER 100 ML IV ONE (10:15)
[2023-06-07] MEDS ORDERED: CLOTRIMAZOLE 10 MG TROCHE MM SCH (17:00)
[2023-06-07] MEDS ORDERED: PIPERACILLIN/TAZOBACTAM SODIUM 3.375 GM in 0.9 % SODIUM CHLORIDE 100 ML IV SCH (18:00)
[2023-06-07] MEDS ORDERED: MINERAL OIL 30 ML BLIST.PACK PO SCH (18:22)
[2023-06-07] MEDS ORDERED: GABAPENTIN 800 MG TABLET PO SCH (21:00)
[2023-06-08 08:45] LABS: HEMATOCRIT 29.7 % (36.0-45.00); HEMOGLOBIN 10.1 g/dL (12.0-15.00); MEAN CORPUSCULAR HGB CONC 34.1 g/dl (32.0-36.0); PLATELET COUNT 222 K/uL (150-450); RED BLOOD COUNT 3.16 M/uL (4.00-6.00); RED CELL DISTRIBUTION WIDTH 17.1 % (11.5-14.5)
[2023-06-08 08:57] LABS: ALBUMIN 2.1 gm/dL (3.4-5.0); BILIRUBIN TOTAL 2.11 mg/dL (0.3-1.2); CALCIUM 8.5 mg/dL (8.5-10.1); CREATININE SERUM 0.48 mg/dL (0.55-1.02); GFR 125.08; GLOBULINA 2.3 G/DL (2.4-3.5); MAGNESIUM 1.9 mg/dL (1.8-2.4); POTASSIUM 3.84 mEq/L (3.5-5.1); TOTAL PROTEIN 4.4 gm/dL (6.4-8.2)
[2023-06-08] MEDS ORDERED: CLONAZEPAM 0.5 MG TABLET PO SCH (12:49)
[2023-06-08 16:23] LABS: ob POSITIVE (NEGATIVE)
[2023-06-08 16:54] LABS: FECAL LEUKOCYTES NEGATIVE (NEGATIVE)
[2023-06-09] MEDS ORDERED: GABAPENTIN 400 MG CAPSULE PO SCH (14:47)
[2023-06-09] MEDS ORDERED: METRONIDAZOLE/SODIUM CHLORIDE 500 MG/100 ML PIGGYBACK IV SCH (17:00)
[2023-06-09] MEDS ORDERED: LACTOBACILLUS ACIDOPHILUS 1 CAP CAP PO SCH (17:21)
[2023-06-09] MEDS ORDERED: PANTOPRAZOLE SODIUM 40 MG/VIAL VIAL IV SCH (17:43)
[2023-06-09] MEDS ORDERED: VANCOMYCIN HCL 125 MG/7.5 ML BLIST.PACK PO SCH (18:00)
[2023-06-09] MEDS ORDERED: VANCOMYCIN HCL PO SCH (18:00)
[2023-06-10 08:40] LABS: HEMATOCRIT 28.4 % (36.0-45.00); HEMOGLOBIN 9.5 g/dL (12.0-15.00); MEAN CELL VOLUME 92.8 fL (80.00-100.00); MEAN CORPUSCULAR HEMOGLOBIN 31.2 pg (27.00-32.0); MEAN CORPUSCULAR HGB CONC 33.6 g/dl (32.0-36.0); PLATELET COUNT 240 K/uL (150-450); RED BLOOD COUNT 3.06 M/uL (4.00-6.00); RED CELL DISTRIBUTION WIDTH 16.8 % (11.5-14.5)
[2023-06-10 08:42] LABS: ALBUMIN 2.2 gm/dL (3.4-5.0); BILIRUBIN TOTAL 1.47 mg/dL (0.3-1.2); C-REACTIVE PROTEIN 3.06 MG/DL (0.00-0.29); CALCIUM 8.4 mg/dL (8.5-10.1); CREATININE SERUM 0.53 mg/dL (0.55-1.02); GFR 111.57; GLOBULINA 2.5 G/DL (2.4-3.5); MAGNESIUM 1.9 mg/dL (1.8-2.4); PHOSPHOROUS 2.8 mg/dL (2.5-4.9); POTASSIUM 3.2 mEq/L (3.5-5.1); TOTAL PROTEIN 4.7 gm/dL (6.4-8.2)
[2023-06-10 08:46] LABS: ERYTHROCYTE SEDIMENTATION RATE 48 mm/hr
[2023-06-10] MEDS ORDERED: POTASSIUM CHLORIDE IN WATER 100 ML IV ONE (11:15)
[2023-06-10] MEDS ORDERED: POTASSIUM CHLORIDE IN WATER 40 MEQ/100 ML PIGGYBAG IV ONE (12:08)
[2023-06-11] MEDS ORDERED: PIPERACILLIN/TAZOBACTAM SODIUM 3.375 GM VIAL IV ONE (00:01)
[2023-06-11] MEDS ORDERED: CLOTRIMAZOLE 30 GM TUBE TOP SCH (09:00)
[2023-06-11] MEDS ORDERED: CLONAZEPAM 0.5 MG TABLET PO SCH (21:00)
[2023-06-12 07:41] LABS: ALBUMIN 2.2 gm/dL (3.4-5.0); BILIRUBIN TOTAL 1.29 mg/dL (0.3-1.2); CALCIUM 8.4 mg/dL (8.5-10.1); CREATININE SERUM 0.53 mg/dL (0.55-1.02); GFR 111.57; GLOBULINA 2.4 G/DL (2.4-3.5); MAGNESIUM 1.5 mg/dL (1.8-2.4); PHOSPHOROUS 2.3 mg/dL (2.5-4.9); POTASSIUM 3.12 mEq/L (3.5-5.1); TOTAL PROTEIN 4.6 gm/dL (6.4-8.2)
[2023-06-12 07:48] LABS: HEMATOCRIT 27.2 % (36.0-45.00); HEMOGLOBIN 9.3 g/dL (12.0-15.00); MEAN CELL VOLUME 94.1 fL (80.00-100.00); MEAN CORPUSCULAR HEMOGLOBIN 32.2 pg (27.00-32.0); MEAN CORPUSCULAR HGB CONC 34.2 g/dl (32.0-36.0); PLATELET COUNT 262 K/uL (150-450); RED BLOOD COUNT 2.89 M/uL (4.00-6.00); RED CELL DISTRIBUTION WIDTH 16.7 % (11.5-14.5)
[2023-06-12] MEDS ORDERED: POTASSIUM CHLORIDE IN WATER 40 MEQ/100 ML PIGGYBAG IV ONE (11:30)
[2023-06-12] MEDS ORDERED: MAGNESIUM SULFATE IN WATER 4 GM/100 ML PIGGYBACK IV STA (12:13)
[2023-06-12] MEDS ORDERED: POTASSIUM CHLORIDE 20MEQ/100ML H2O PB IV ONE (12:15)
[2023-06-12] MEDS ORDERED: POTASSIUM PHOS,M-BASIC-D-BASIC 15 MM in 0.9 % SODIUM CHLORIDE 250 ML IV ONE (12:15)
[2023-06-12] MEDS ORDERED: POTASSIUM CHLORIDE IN WATER 100 ML IV ONE (12:15)
[2023-06-13] MEDS ORDERED: PANTOPRAZOLE SODIUM 40 MG TABLET.DR PO SCH (09:00)
[2023-06-13] MEDS ORDERED: TRAMADOL HCL 50 MG TABLET PO PRN (11:30)
[2023-06-13] MEDS ORDERED: ACYCLOVIR 400 MG TABLET PO SCH (23:03)
[2023-06-14] MEDS ORDERED: ZINC TOP SCH (09:00)
[2023-06-14] MEDS ORDERED: KETOCONAZOLE TOP SCH (09:00)
[2023-06-14] MEDS ORDERED: MOMETASONE TOP SCH (09:00)
[2023-06-14] MEDS ORDERED: [UNRECOGNIZED DRUG - MIXTURE] TOP SCH (10:00)
[2023-06-14] MEDS ORDERED: hydrALAZINE HCL 25 MG TABLET PO SCH (12:00)
[2023-06-14] MEDS ORDERED: SPIRONOLACTONE 25 MG TABLET PO SCH (12:00)
[2023-06-14 12:23] LABS: HEMATOCRIT 29.7 % (36.0-45.00); HEMOGLOBIN 10.1 g/dL (12.0-15.00); MEAN CELL VOLUME 95.2 fL (80.00-100.00); MEAN CORPUSCULAR HEMOGLOBIN 32.4 pg (27.00-32.0); PLATELET COUNT 284 K/uL (150-450); RED BLOOD COUNT 3.12 M/uL (4.00-6.00); RED CELL DISTRIBUTION WIDTH 16.7 % (11.5-14.5)
[2023-06-14 13:08] LABS: ALBUMIN 2.4 gm/dL (3.4-5.0); BILIRUBIN TOTAL 1.06 mg/dL (0.3-1.2); CALCIUM 8.5 mg/dL (8.5-10.1); CREATININE SERUM 0.55 mg/dL (0.55-1.02); GFR 106.9; GLOBULINA 2.4 G/DL (2.4-3.5); MAGNESIUM 1.7 mg/dL (1.8-2.4); TOTAL PROTEIN 4.8 gm/dL (6.4-8.2)
[2023-06-14 13:19] LABS: POTASSIUM 2.94 mEq/L (3.5-5.1)
[2023-06-14] MEDS ORDERED: POTASSIUM CHLORIDE/D5-0.9%NACL 1,000 ML IV ONE (13:30)
[2023-06-14] MEDS ORDERED: MAGNESIUM SULFATE IN WATER 50 ML IV ONE (13:30)
[2023-06-14] MEDS ORDERED: POTASSIUM PHOS,M-BASIC-D-BASIC 3 MM/ML VIAL IV ONE (14:00)
[2023-06-14] MEDS ORDERED: POTASSIUM BICARBONATE/CIT AC 25 MEQ TABLET.EFF PO SCH (17:00)
[2023-06-14] MEDS ORDERED: DOXAZOSIN MESYLATE 8 MG TABLET PO SCH (17:00)
[2023-06-14] MEDS ORDERED: DOCUSATE SODIUM 100MG CAP PO SCH (21:00)
[2023-06-15 06:28] LABS: HEMATOCRIT 27.9 % (36.0-45.00); HEMOGLOBIN 9.5 g/dL (12.0-15.00); MEAN CELL VOLUME 94.5 fL (80.00-100.00); MEAN CORPUSCULAR HEMOGLOBIN 32.2 pg (27.00-32.0); MEAN CORPUSCULAR HGB CONC 34.1 g/dl (32.0-36.0); PLATELET COUNT 261 K/uL (150-450); RED BLOOD COUNT 2.96 M/uL (4.00-6.00); RED CELL DISTRIBUTION WIDTH 16.8 % (11.5-14.5)
[2023-06-15] MEDS ORDERED: BUMETANIDE 1 MG TABLET PO SCH ×2 (09:00)
[2023-06-15] MEDS ORDERED: LIDOCAINE HCL 60 ML,MAG HYDROX/ALUMINUM HYD/SIMETH 60 ML,DIPHENHYDRAMINE HCL 150 MG MM PRN (10:30)
[2023-06-15 12:50] LABS: ALBUMIN 2.5 gm/dL (3.4-5.0); BILIRUBIN TOTAL 1.08 mg/dL (0.3-1.2); CALCIUM 8.6 mg/dL (8.5-10.1); CREATININE SERUM 0.53 mg/dL (0.55-1.02); GFR 111.57; GLOBULINA 2.4 G/DL (2.4-3.5); MAGNESIUM 2.1 mg/dL (1.8-2.4); PHOSPHOROUS 2.4 mg/dL (2.5-4.9); POTASSIUM 3.78 mEq/L (3.5-5.1); TOTAL PROTEIN 4.9 gm/dL (6.4-8.2)
[2023-06-15] MEDS ORDERED: POTASSIUM BICARBONATE/CIT AC 25 MEQ TABLET.EFF PO SCH (16:21)
[2023-06-15] MEDS ORDERED: POTASSIUM PHOS,M-BASIC-D-BASIC 18 MM in 0.9 % SODIUM CHLORIDE 250 ML IV ONE (16:30)
[2023-06-15] MEDS ORDERED: LIDOCAINE HCL 60 ML,MAG HYDROX/ALUMINUM HYD/SIMETH 60 ML,DIPHENHYDRAMINE HCL 150 MG MM SCH (17:00)
[2023-06-15] MEDS ORDERED: MELATONIN 5 MG TABLET PO SCH (21:00)
[2023-06-16] MEDS ORDERED: ZOLPIDEM TARTRATE 5 MG TABLET PO SCH (21:00)
[2023-06-17 06:11] LABS: HEMOGLOBIN 9.7 g/dL (12.0-15.00); MEAN CELL VOLUME 93.4 fL (80.00-100.00); MEAN CORPUSCULAR HEMOGLOBIN 31.4 pg (27.00-32.0); MEAN CORPUSCULAR HGB CONC 33.6 g/dl (32.0-36.0); PLATELET COUNT 217 K/uL (150-450); RED BLOOD COUNT 3.11 M/uL (4.00-6.00); RED CELL DISTRIBUTION WIDTH 16.7 % (11.5-14.5)
[2023-06-17 06:37] LABS: CREATININE SERUM 0.56 mg/dL (0.55-1.02); GFR 104.7; MAGNESIUM 1.8 mg/dL (1.8-2.4); PHOSPHOROUS 2.7 mg/dL (2.5-4.9)
[2023-06-18] MEDS ORDERED: GABAPENTIN 400 MG CAPSULE PO SCH (21:00)
[2023-06-20 07:21] LABS: ALBUMIN 2.6 gm/dL (3.4-5.0); CREATININE SERUM 0.65 mg/dL (0.55-1.02); GFR 88.15; PHOSPHOROUS 3.4 mg/dL (2.5-4.9); POTASSIUM 3.95 mEq/L (3.5-5.1)
[2023-06-20] MEDS ORDERED: FAMOTIDINE/PF 20 MG/2 ML VIAL IV STA (21:38)
[2023-06-21] MEDS ORDERED: AMINO ACIDS 1 EACH TABLET PO SCH (13:00)
[2023-06-21] MEDS ORDERED: AMOXICILLIN/POTASSIUM CLAV 875-125 TABLET PO SCH (17:00)
[2023-06-21] MEDS ORDERED: FAMOTIDINE/PF 20 MG/2 ML VIAL IV SCH (21:00)
[2023-06-24 08:02] LABS: HEMATOCRIT 28.8 % (36.0-45.00); MEAN CELL VOLUME 94.4 fL (80.00-100.00); MEAN CORPUSCULAR HEMOGLOBIN 32.7 pg (27.00-32.0); MEAN CORPUSCULAR HGB CONC 34.6 g/dl (32.0-36.0); PLATELET COUNT 190 K/uL (150-450); RED BLOOD COUNT 3.05 M/uL (4.00-6.00); RED CELL DISTRIBUTION WIDTH 17.6 % (11.5-14.5)
[2023-06-24 08:23] LABS: ALBUMIN 2.5 gm/dL (3.4-5.0); CALCIUM 8.4 mg/dL (8.5-10.1); CREATININE SERUM 0.66 mg/dL (0.55-1.02); GFR 86.61; GLOBULINA 2.5 G/DL (2.4-3.5); MAGNESIUM 1.6 mg/dL (1.8-2.4); PHOSPHOROUS 3.8 mg/dL (2.5-4.9); POTASSIUM 3.28 mEq/L (3.5-5.1)
[2023-06-24] MEDS ORDERED: MAGNESIUM SULFATE IN WATER 4 GM/100 ML PIGGYBACK IV STA (09:18)
[2023-06-24] MEDS ORDERED: POTASSIUM BICARBONATE/CIT AC 25 MEQ TABLET.EFF PO SCH ×2 (09:19→18:08)
[2023-06-24] MEDS ORDERED: MAGNESIUM CHLORIDE 70 MG TABLET.DR PO SCH ×2 (10:31→18:05)
[2023-06-24] MEDS ORDERED: NA PHOS,M-B/NA PHOS,DI-BA 1 BOTTLE ENEMA RECTAL ONE (16:45)
[2023-06-24] MEDS ORDERED: LACTULOSE 20 G/30 ML BLIST.PACK PO ONE (16:45)
[2023-06-24] MEDS ORDERED: MINERAL OIL 30 ML BLIST.PACK PO ONE (16:45)
[2023-06-24] MEDS ORDERED: DOCUSATE SODIUM 100MG CAP PO SCH (17:00)
[2023-06-24] MEDS ORDERED: FAMOtidine 20 MG TABLET PO SCH (21:00)
[2023-06-25] MEDS ORDERED: DOCUSATE SODIUM 100MG CAP PO SCH (17:00)
[2023-06-25] MEDS ORDERED: DIATRIZOATE MEGLUMINE, SODIUM 30 ML BOTTLE PO ONE (17:30)
[2023-06-26] MEDS ORDERED: DIATRIZOATE MEGLUMINE, SODIUM 30 ML BOTTLE PO ONE (06:00)
[2023-06-26] MEDS ORDERED: DOXAZOSIN MESYLATE 4 MG TABLET PO SCH (17:00)
[2023-06-26] MEDS ORDERED: TRAMADOL HCL 50 MG TABLET PO ONE (20:00)
[2023-06-28 14:05] LABS: HEMATOCRIT 32.3 % (36.0-45.00); HEMOGLOBIN 10.7 g/dL (12.0-15.00); MEAN CELL VOLUME 94.7 fL (80.00-100.00); MEAN CORPUSCULAR HEMOGLOBIN 31.4 pg (27.00-32.0); MEAN CORPUSCULAR HGB CONC 33.1 g/dl (32.0-36.0); PLATELET COUNT 228 K/uL (150-450); RED BLOOD COUNT 3.41 M/uL (4.00-6.00); RED CELL DISTRIBUTION WIDTH 17.4 % (11.5-14.5)
[2023-06-28 14:28] LABS: BILIRUBIN TOTAL 1.13 mg/dL (0.3-1.2); CALCIUM 8.7 mg/dL (8.5-10.1); CREATININE SERUM 0.77 mg/dL (0.55-1.02); GFR 72.5; GLOBULINA 2.7 G/DL (2.4-3.5); POTASSIUM 3.73 mEq/L (3.5-5.1); TOTAL PROTEIN 5.7 gm/dL (6.4-8.2)
[2023-06-29] MEDS ORDERED: DOCUSATE SODIUM 100MG CAP PO SCH (12:06)
[2023-06-29] MEDS ORDERED: NYSTATIN 15 GM,SILVER SULFADIAZINE 50 GM,ZINC OXIDE 30 GM TOP SCH (17:00)
[2023-06-29] MEDS ORDERED: SILVER SULFADIAZINE 50 GM JAR TOP SCH (17:00)
[2023-06-29] MEDS ORDERED: ZINC OXIDE 30 GM TUBE TOP SCH (17:00)
[2023-06-29] MEDS ORDERED: NYSTATIN 15 GM TUBE TOP SCH (17:00)
[2023-06-29] MEDS ORDERED: LACTULOSE 20 G/30 ML BLIST.PACK PO ONE (21:30)
[2023-06-29] MEDS ORDERED: MINERAL OIL 30 ML BLIST.PACK PO ONE (21:30)
[2023-06-30] MEDS ORDERED: METOPROLOL SUCCINATE 50 MG TAB.SR.24H PO SCH (09:00)
[2023-06-30] MEDS ORDERED: NA PHOS,M-B/NA PHOS,DI-BA 1 BOTTLE ENEMA RECTAL ONE (11:00)
[2023-06-30] MEDS ORDERED: MAGNESIUM HYDROXIDE 30 ML BLIST.PACK PO ONE (11:00)
[2023-06-30] MEDS ORDERED: LACTULOSE 20 G/30 ML BLIST.PACK PO ONE (11:00)
[2023-06-30] MEDS ORDERED: MAGNESIUM CHLOR70 MG PO (13:12)
[2023-06-30] MEDS ORDERED: TOPROL XL50 M1 PO (13:12)
[2023-06-30] MEDS ORDERED: FAMOTIDINE20 MG PO (13:12)
[2023-06-30] MEDS ORDERED: PRE PROTEIN1 EACH PO (13:12)
[2023-06-30] MEDS ORDERED: PREDNISONE 5MG PO (13:12)
[2023-06-30] MEDS ORDERED: ELIQUIS5 MG PO (13:12)
[2023-06-30] MEDS ORDERED: GABAPENTIN400 MG PO (13:12)
[2023-06-30] MEDS ORDERED: GABAPENTIN800 MG PO (13:12)
[2023-06-30] MEDS ORDERED: SPIRONOLACTONE25 MG PO (13:12)
[2023-06-30] MEDS ORDERED: BUMETANIDE1 MG PO (13:12)
[2023-06-30] MEDS ORDERED: HYDRALAZINE HCL25 MG PO (13:12)
[2023-06-30] MEDS ORDERED: INTEGRA PLUS C1 EACH PO (13:12)
[2023-06-30] MEDS ORDERED: PANTOPRAZOLE SO40 MG PO (13:12)
[2023-06-30] MEDS ORDERED: COLACE100 MG PO (13:12)
[2023-06-30] MEDS ORDERED: MELATONIN5 M2 PO (13:12)
[2023-06-30] MEDS ORDERED: INTESTINEX680 M1 PO (13:12)
[2023-06-30] MEDS ORDERED: MILK OF MA2400 MG/11 PO (13:13)
[2023-07-01] MEDS ORDERED: MINERAL OIL 30 ML BLIST.PACK PO SCH (09:00)
== END 2023-06-30 20:43 | disposition home or self-care (01) | DRG 871 ==
LOC: ER 14:07 → MEDI 23:54 → ICU 05-31 02:09 → MEDJ 06-02 17:54
PROVIDERS: General Practice; Internal Medicine; Internal Medicine Nephrology; Specialist/Technologist, Other Nephrology; ADMIT Internal Medicine; ATTEND Internal Medicine
PROC: B020ZZZ Computerized Tomography (CT Scan) of Brain (ICD-10-PCS; principal; 2023-05-29)
PROC: B24BYZZ Ultrasonography of Heart with Aorta using Other Contrast (ICD-10-PCS; 2023-05-29)
PROC: BW21ZZZ Computerized Tomography (CT Scan) of Abdomen and Pelvis (ICD-10-PCS; 2023-05-29)
PROC: BW24ZZZ Computerized Tomography (CT Scan) of Chest and Abdomen (ICD-10-PCS; 2023-05-30)
PROC: BW21ZZZ Computerized Tomography (CT Scan) of Abdomen and Pelvis (ICD-10-PCS; 2023-05-30)
PROC: 02HV33Z Insertion of Infusion Device into Superior Vena Cava, Percutaneous Approach (ICD-10-PCS; 2023-05-30)
PROC: 4A12X4Z Monitoring of Cardiac Electrical Activity, External Approach (ICD-10-PCS; 2023-05-30)
PROC: BW40ZZZ Ultrasonography of Abdomen (ICD-10-PCS; 2023-06-23)
PROC: BW20YZZ Computerized Tomography (CT Scan) of Abdomen using Other Contrast (ICD-10-PCS; 2023-06-25)
DX: A41.9 Sepsis, unspecified organism (principal); I21.4 Non-ST elevation (NSTEMI) myocardial infarction; L03.114 Cellulitis of left upper limb; E87.1 Hypo-osmolality and hyponatremia; N17.9 Acute kidney failure, unspecified; I50.30 Unspecified diastolic (congestive) heart failure; J90 Pleural effusion, not elsewhere classified; E27.40 Unspecified adrenocortical insufficiency; M62.82 Rhabdomyolysis; I10 Essential (primary) hypertension; D64.9 Anemia, unspecified; D72.829 Elevated white blood cell count, unspecified; I48.91 Unspecified atrial fibrillation; I50.9 Heart failure, unspecified; K58.9 Irritable bowel syndrome, unspecified; B95.62 Methicillin resistant Staphylococcus aureus infection as the cause of diseases classified elsewhere; K59.00 Constipation, unspecified

== ENCOUNTER 2023-11-19 16:06 | Inpatient (IN) | payer OTHER ==
[~2023-11-19] VITALS: Ht 160 cm; Wt 90.7 kg
[~2023-11-19 16:06] MED LIST changes: +AMLODIPINE BESYL5 MG PO; +BUMETANIDE1 MG; +BUMETANIDE1 MG PO; +COLACE100 MG PO; +DOLOGESIC 500-1 EACH PO; +FAMOTIDINE20 MG PO; +GABAPENTIN400 MG PO; +GABAPENTIN800 MG PO; +HYDRALAZINE HCL25 MG PO; +INTEGRA PLUS C1 EACH PO; +INTESTINEX680 M1 PO; +LASIX20 MG PO; +MAGNESIUM CHLOR70 MG PO; +MELATONIN5 M2 PO; +MILK OF MA2400 MG/11 PO; +NORVASC2.5 M1 PO; +NU-MAG71.5 MG PO; +PANTOPRAZOLE SO40 MG PO; +PHENERGAN25 MG PO; +PRE PROTEIN1 EACH PO; +PREDNISONE 5MG PO; +SINGULAIR10 MG PO; +SPIRONOLACTONE25 MG PO; +SYMAX0.125 MG PO; +ZANAFLEX4 M1 PO
[2023-11-19 17:02] LABS: HEMATOCRIT 28.7 % (36.0-45.00); HEMOGLOBIN 9.6 g/dL (12.0-15.00); MEAN CELL VOLUME 91.7 fL (80.00-100.00); MEAN CORPUSCULAR HEMOGLOBIN 30.7 pg (27.00-32.0); MEAN CORPUSCULAR HGB CONC 33.4 g/dl (32.0-36.0); PLATELET COUNT 164 K/uL (150-450); RED BLOOD COUNT 3.12 M/uL (4.00-6.00); RED CELL DISTRIBUTION WIDTH 17.3 % (11.5-14.5)
[2023-11-19 17:31] LABS: ERYTHROCYTE SEDIMENTATION RATE 16 mm/hr
[2023-11-19 17:34] LABS: URINE APPEARANCE Clear; URINE BILIRRUBIN Negative (NEGATIVE); URINE BLOOD Negative; URINE COLOR Yellow; URINE GLUCOSE Negative (NEGATIVE); URINE KETONE Negative (NEGATIVE); URINE LEUKOCYTE Negative; URINE NITRATE Negative; URINE PROTEIN Trace (NEGATIVE)
[2023-11-19 17:35] LABS: INR 1.12; PARTIAL THROMBOPLASTIN TIME 26.9 SECONDS (22.0-34.0); PROTHROMBIN TIME 12.1 SECONDS (9.0-11.5)
[2023-11-19 17:37] LABS: URINE BACTERIA 59.2 uL (0.0-1933); URINE EPITHELIAL CELLS 4.9 uL (0.0-38.8); URINE RBC 6.2 uL (0.0-20.8); URINE WBC 3.8 uL (0.0-23.2)
[2023-11-19 17:55] LABS: ALBUMIN 3.4 gm/dL (3.4-5.0); BILIRUBIN TOTAL 1.39 mg/dL (0.3-1.2); CALCIUM 9.1 mg/dL (8.5-10.1); CREATININE SERUM 0.91 mg/dL (0.55-1.02); GFR 59.79; GLOBULINA 2.7 G/DL (2.4-3.5); POTASSIUM 4.07 mEq/L (3.5-5.1); TOTAL PROTEIN 6.1 gm/dL (6.4-8.2)
[2023-11-19 17:59] LABS: C-REACTIVE PROTEIN 0.96 MG/DL (0.00-0.29)
[2023-11-19] MEDS ORDERED: VANCOMYCIN HCL 1,000 MG VIAL ONE (20:15)
[2023-11-19] MEDS ORDERED: VANCOMYCIN HCL 1,000 MG VIAL IV ONE (20:15)
[2023-11-19] MEDS ORDERED: MORPHINE SULFATE 2 MG/ML CARTRIDGE IV PRN (23:45)
[2023-11-19] MEDS ORDERED: ONDANSETRON HCL 4 MG in 0.9 % SODIUM CHLORIDE 50 ML IV PRN (23:45)
[2023-11-19] MEDS ORDERED: ACETAMINOPHEN 500 MG GEL..CAP PO PRN (23:45)
[2023-11-20 08:05] VITALS: BP 129/61; O2SAT 98
[2023-11-20 08:20] LABS: HEMATOCRIT 30.2 % (36.0-45.00); HEMOGLOBIN 10.3 g/dL (12.0-15.00); MEAN CELL VOLUME 90.8 fL (80.00-100.00); MEAN CORPUSCULAR HEMOGLOBIN 30.9 pg (27.00-32.0); PLATELET COUNT 170 K/uL (150-450); RED BLOOD COUNT 3.32 M/uL (4.00-6.00); RED CELL DISTRIBUTION WIDTH 17.1 % (11.5-14.5)
[2023-11-20 08:42] LABS: INR 1.11; PARTIAL THROMBOPLASTIN TIME 23.2 SECONDS (22.0-34.0)
[2023-11-20 08:59] LABS: ALBUMIN 3.6 gm/dL (3.4-5.0); BILIRUBIN TOTAL 2.5 mg/dL (0.3-1.2); BILIRUBIN,CONJUGATED 0.42 mg/dL (0.0-0.2); BILIRUBIN,UNCONJUGATED 2.08 mg/dL (0.0-0.6); CALCIUM 9.2 mg/dL (8.5-10.1); CHOL HDL RATIO 2.4 (0-5.0); CREATININE SERUM 0.75 mg/dL (0.55-1.02); GFR 74.73; GLOBULINA 2.7 G/DL (2.4-3.5); TOTAL PROTEIN 6.3 gm/dL (6.4-8.2)
[2023-11-20] MEDS ORDERED: hydrALAZINE HCL 25 MG TABLET PO SCH (09:00)
[2023-11-20] MEDS ORDERED: SPIRONOLACTONE 25 MG TABLET PO SCH (09:00)
[2023-11-20] MEDS ORDERED: METOPROLOL SUCCINATE 50 MG TAB.SR.24H PO SCH (09:00)
[2023-11-20] MEDS ORDERED: VANCOMYCIN HCL 1,000 MG in 0.9 % SODIUM CHLORIDE 250 ML IV SCH (09:00)
[2023-11-20] MEDS ORDERED: GABAPENTIN 400 MG CAPSULE PO SCH (09:00)
[2023-11-20] MEDS ORDERED: APIXABAN 5 MG TABLET PO SCH (09:00)
[2023-11-20] MEDS ORDERED: PANTOPRAZOLE SODIUM 40 MG in 0.9 % SODIUM CHLORIDE 8 ML IV PUSH SCH (09:00)
[2023-11-20] MEDS ORDERED: PREDNISONE 5 MG TABLET PO SCH (09:00)
[2023-11-20 09:01] LABS: LDH 223 U/L (84-246); PHOSPHOKINASE CREATININE 62 U/L (26-192)
[2023-11-20 09:04] LABS: C-REACTIVE PROTEIN 0.98 MG/DL (0.00-0.29)
[2023-11-20 11:35] LABS: ERYTHROCYTE SEDIMENTATION RATE 16 mm/hr
[2023-11-20 13:43] LABS: URINE APPEARANCE Clear; URINE BACTERIA 28.9 uL (0.0-1933); URINE BILIRRUBIN Negative (NEGATIVE); URINE BLOOD Negative; URINE COLOR Yellow; URINE EPITHELIAL CELLS 3.5 uL (0.0-38.8); URINE GLUCOSE Negative (NEGATIVE); URINE KETONE Negative (NEGATIVE); URINE LEUKOCYTE Negative; URINE NITRATE Negative; URINE PROTEIN Negative (NEGATIVE); URINE RBC 21.2 uL (0.0-20.8); URINE UROBILINOGEN 0.2 E.U./dl; URINE WBC 3.5 uL (0.0-23.2)
[2023-11-20 16:25] VITALS: BP 160/69; O2SAT 95
[2023-11-20] MEDS ORDERED: DOXAZOSIN MESYLATE 8 MG TABLET PO SCH (17:00)
[2023-11-20] MEDS ORDERED: FAMOTIDINE/PF 20 MG/2 ML VIAL IV PUSH SCH (17:00)
[2023-11-20] MEDS ORDERED: GABAPENTIN 800 MG TABLET PO SCH (17:00)
[2023-11-20 19:46] LABS: LDH 243 U/L (84-246); PHOSPHOKINASE CREATININE 63 U/L (26-192)
[2023-11-20] MEDS ORDERED: ZOLPIDEM TARTRATE 5 MG TABLET PO SCH (21:00)
[2023-11-21] VITALS: BP 159/75; O2SAT 95
[2023-11-21] MEDS ORDERED: BUMETANIDE 2.5 MG/10 ML VIAL IV SCH (09:00)
[2023-11-21] MEDS ORDERED: BUMETANIDE 1 MG TABLET PO SCH (09:00)
[2023-11-21] MEDS ORDERED: DIATRIZOATE MEGLUMINE, SODIUM 30 ML BOTTLE PO NR (09:15)
[2023-11-21 16:00] VITALS: BP 164/71; O2SAT 95
[2023-11-21] MEDS ORDERED: CLOTRIMAZOLE 30 GM TUBE TOP SCH (17:00)
[2023-11-21 21:03] VITALS: BP 176/75
[2023-11-22] VITALS: BP 127/58; O2SAT 95
[2023-11-22 07:38] LABS: MEAN CELL VOLUME 90.4 fL (80.00-100.00); MEAN CORPUSCULAR HGB CONC 33.7 g/dl (32.0-36.0); PLATELET COUNT 154 K/uL (150-450); RED BLOOD COUNT 2.88 M/uL (4.00-6.00); RED CELL DISTRIBUTION WIDTH 16.8 % (11.5-14.5)
[2023-11-22 07:39] LABS: MEAN CORPUSCULAR HEMOGLOBIN 30.5 pg (27.00-32.0)
[2023-11-22 07:40] LABS: HEMOGLOBIN 8.8 g/dL (12.0-15.00)
[2023-11-22 08:16] LABS: BILIRUBIN TOTAL 3.37 mg/dL (0.3-1.2); CALCIUM 8.5 mg/dL (8.5-10.1); CREATININE SERUM 0.85 mg/dL (0.55-1.02); GFR 64.68; GLOBULINA 2.1 G/DL (2.4-3.5); POTASSIUM 3.61 mEq/L (3.5-5.1); TOTAL PROTEIN 5.1 gm/dL (6.4-8.2)
[2023-11-22] MEDS ORDERED: DOCUSATE SODIUM 100MG CAP PO SCH (09:00)
[2023-11-22 09:39] VITALS: BP 112/57; O2SAT 99
[2023-11-22 16:00] VITALS: BP 129/57; O2SAT 95
[2023-11-22] MEDS ORDERED: ZINC OXIDE 30 GM,NYSTATIN 30 GM,SILVER SULFADIAZINE 50 GM TOP SCH (17:00)
[2023-11-22] MEDS ORDERED: GABAPENTIN 800 MG TABLET PO SCH (21:00)
[2023-11-22] MEDS ORDERED: DOXAZOSIN MESYLATE 8 MG TABLET PO SCH (21:00)
[2023-11-23] VITALS: BP 126/56; O2SAT 95
[2023-11-23 08:00] VITALS: BP 135/66; O2SAT 98
[2023-11-23] MEDS ORDERED: KETOROLAC TROMETHAMINE 30 MG VIAL IM NR (14:30)
[2023-11-23 17:00] VITALS: BP 176/79; O2SAT 99
[2023-11-23] MEDS ORDERED: LACTOBACILLUS ACIDOPHILUS 1 CAP CAP PO SCH (17:00)
[2023-11-23 18:25] LABS: HEMATOCRIT 30.1 % (36.0-45.00); HEMOGLOBIN 9.9 g/dL (12.0-15.00); MEAN CELL VOLUME 91.7 fL (80.00-100.00); MEAN CORPUSCULAR HEMOGLOBIN 30.2 pg (27.00-32.0); PLATELET COUNT 166 K/uL (150-450); RED BLOOD COUNT 3.28 M/uL (4.00-6.00); RED CELL DISTRIBUTION WIDTH 16.7 % (11.5-14.5)
[2023-11-24 00:58] VITALS: BP 157/65; O2SAT 97
[2023-11-24 08:04] VITALS: BP 125/71; O2SAT 98
[2023-11-24] MEDS ORDERED: PANTOPRAZOLE SODIUM 40 MG TABLET.DR PO SCH (09:00)
[2023-11-24] MEDS ORDERED: VANCOMYCIN HCL 1,000 MG in 0.9 % SODIUM CHLORIDE 250 ML IV SCH (21:00)
[2023-11-25 00:50] VITALS: BP 148/65; O2SAT 99
[2023-11-25 08:00] VITALS: BP 121/94; O2SAT 95
[2023-11-25] MEDS ORDERED: BUMETANIDE 2.5 MG/10 ML VIAL IV SCH (09:00)
[2023-11-25 16:41] VITALS: BP 131/60; O2SAT 98
[2023-11-25] MEDS ORDERED: VANCOMYCIN HCL 5 MG/ML REDILUIDO IV SCH (17:00)
[2023-11-25] MEDS ORDERED: FAMOTIDINE/PF 20 MG/2 ML VIAL IV PUSH SCH (19:32)
[2023-11-26] VITALS: BP 122/68; O2SAT 97
[2023-11-26 08:00] VITALS: BP 136/63; O2SAT 98
[2023-11-26 08:15] LABS: HEMATOCRIT 28.2 % (36.0-45.00); HEMOGLOBIN 9.4 g/dL (12.0-15.00); MEAN CELL VOLUME 91.9 fL (80.00-100.00); MEAN CORPUSCULAR HEMOGLOBIN 30.7 pg (27.00-32.0); MEAN CORPUSCULAR HGB CONC 33.4 g/dl (32.0-36.0); PLATELET COUNT 170 K/uL (150-450); RED BLOOD COUNT 3.07 M/uL (4.00-6.00); RED CELL DISTRIBUTION WIDTH 16.2 % (11.5-14.5)
[2023-11-26 08:56] LABS: ALBUMIN 3.1 gm/dL (3.4-5.0); BILIRUBIN TOTAL 1.79 mg/dL (0.3-1.2); CALCIUM 8.7 mg/dL (8.5-10.1); CREATININE SERUM 0.74 mg/dL (0.55-1.02); GFR 75.9; GLOBULINA 2.6 G/DL (2.4-3.5); POTASSIUM 3.8 mEq/L (3.5-5.1); TOTAL PROTEIN 5.7 gm/dL (6.4-8.2)
[2023-11-26 16:00] VITALS: BP 140/64; O2SAT 95
[2023-11-27 08:00] VITALS: BP 142/61; O2SAT 99
[2023-11-27 16:00] VITALS: BP 136/65; O2SAT 97
[2023-11-27] MEDS ORDERED: DOCUSATE SODIUM 100MG CAP PO SCH (17:00)
[2023-11-28] VITALS: BP 118/55; O2SAT 97
[2023-11-28 08:00] VITALS: BP 112/59; O2SAT 95
[2023-11-28 10:57] LABS: ALBUMIN 3.4 gm/dL (3.4-5.0); BILIRUBIN TOTAL 1.64 mg/dL (0.3-1.2); CALCIUM 9.1 mg/dL (8.5-10.1); CREATININE SERUM 1.04 mg/dL (0.55-1.02); GFR 51.25; GLOBULINA 2.7 G/DL (2.4-3.5); POTASSIUM 3.68 mEq/L (3.5-5.1); TOTAL PROTEIN 6.1 gm/dL (6.4-8.2)
[2023-11-28 16:42] VITALS: BP 100/60; O2SAT 98
[2023-11-29 00:19] VITALS: BP 134/63; O2SAT 95
[2023-11-29 08:30] LABS: HEMATOCRIT 27.8 % (36.0-45.00); HEMOGLOBIN 9.3 g/dL (12.0-15.00); MEAN CORPUSCULAR HGB CONC 33.3 g/dl (32.0-36.0); PLATELET COUNT 180 K/uL (150-450); RED BLOOD COUNT 3.09 M/uL (4.00-6.00); RED CELL DISTRIBUTION WIDTH 16.2 % (11.5-14.5)
[2023-11-29 08:45] VITALS: BP 142/62; O2SAT 96
[2023-11-29] MEDS ORDERED: ONDANSETRON HCL 2 MG/ML VIAL IV SCH (09:00)
[2023-11-29 09:20] LABS: ALBUMIN 3.2 gm/dL (3.4-5.0); BILIRUBIN TOTAL 1.64 mg/dL (0.3-1.2); CALCIUM 9.1 mg/dL (8.5-10.1); CREATININE SERUM 0.89 mg/dL (0.55-1.02); GFR 61.34; GLOBULINA 2.4 G/DL (2.4-3.5); POTASSIUM 3.67 mEq/L (3.5-5.1); TOTAL PROTEIN 5.6 gm/dL (6.4-8.2)
[2023-11-29 14:10] VITALS: BP 121/58
[2023-11-29 16:44] VITALS: BP 129/65; O2SAT 98
[2023-11-29] MEDS ORDERED: PANTOPRAZOLE SODIUM 40 MG TABLET.DR PO SCH (17:00)
[2023-11-30 00:16] VITALS: BP 141/65; O2SAT 96
[2023-11-30 08:47] VITALS: BP 110/56; O2SAT 95
[2023-11-30 16:56] VITALS: BP 102/57; O2SAT 98
[2023-11-30] MEDS ORDERED: VANCOMYCIN HCL 500 MG VIAL IV SCH (17:00)
[2023-11-30] MEDS ORDERED: POLYETHYLENE GLYCOL 3350 17 GM BLIST.PACK PO SCH (21:10)
[2023-11-30] MEDS ORDERED: NA PHOS,M-B/NA PHOS,DI-BA 1 BOTTLE ENEMA RECTAL ONE (21:15)
[2023-11-30] MEDS ORDERED: DOCUSATE SODIUM 100MG CAP PO PRN (21:15)
[2023-12-01 01:20] VITALS: BP 110/60; O2SAT 97
[2023-12-01 08:50] VITALS: BP 135/65; O2SAT 99
[2023-12-01 08:53] LABS: HEMATOCRIT 29.9 % (36.0-45.00); HEMOGLOBIN 9.8 g/dL (12.0-15.00); MEAN CELL VOLUME 90.2 fL (80.00-100.00); MEAN CORPUSCULAR HEMOGLOBIN 29.7 pg (27.00-32.0); PLATELET COUNT 199 K/uL (150-450); RED BLOOD COUNT 3.31 M/uL (4.00-6.00); RED CELL DISTRIBUTION WIDTH 16.4 % (11.5-14.5)
[2023-12-01] MEDS ORDERED: MINERAL OIL 30 ML BLIST.PACK PO STA (09:04)
[2023-12-01 09:53] LABS: ALBUMIN 3.5 gm/dL (3.4-5.0); BILIRUBIN TOTAL 1.19 mg/dL (0.3-1.2); CALCIUM 8.8 mg/dL (8.5-10.1); CREATININE SERUM 0.88 mg/dL (0.55-1.02); GFR 62.14; GLOBULINA 2.7 G/DL (2.4-3.5); TOTAL PROTEIN 6.2 gm/dL (6.4-8.2)
[2023-12-01] MEDS ORDERED: MAGNESIUM HYDROXIDE 30 ML BLIST.PACK PO NR ×2 (10:05→19:00)
[2023-12-01 16:57] VITALS: BP 122/69; O2SAT 97
[2023-12-01] MEDS ORDERED: NA PHOS,M-B/NA PHOS,DI-BA 1 BOTTLE ENEMA RECTAL NR (17:30)
[2023-12-01] MEDS ORDERED: NA PHOS,M-B/NA PHOS,DI-BA 1 BOTTLE ENEMA RECTAL STA (18:42)
[2023-12-01] MEDS ORDERED: MINERAL OIL 30 ML BLIST.PACK PO NR (19:00)
[2023-12-02 08:00] VITALS: BP 130/62; O2SAT 94
[2023-12-02] MEDS ORDERED: LACTULOSE 20 G/30 ML BLIST.PACK PO SCH (09:00)
[2023-12-02] MEDS ORDERED: MAGNESIUM HYDROXIDE 30 ML BLIST.PACK PO SCH (09:00)
[2023-12-02] MEDS ORDERED: MINERAL OIL 30 ML BLIST.PACK PO SCH (09:00)
[2023-12-02] MEDS ORDERED: NA PHOS,M-B/NA PHOS,DI-BA 1 BOTTLE ENEMA RECTAL SCH (09:00)
[2023-12-02 16:00] VITALS: BP 133/62; O2SAT 99
[2023-12-03 00:56] VITALS: BP 116/56; O2SAT 99
[2023-12-03 08:00] VITALS: BP 105/61; O2SAT 99
[2023-12-03 08:33] LABS: HEMATOCRIT 26.2 % (36.0-45.00); MEAN CELL VOLUME 90.7 fL (80.00-100.00); MEAN CORPUSCULAR HEMOGLOBIN 30.4 pg (27.00-32.0); MEAN CORPUSCULAR HGB CONC 33.5 g/dl (32.0-36.0); PLATELET COUNT 158 K/uL (150-450); RED BLOOD COUNT 2.89 M/uL (4.00-6.00); RED CELL DISTRIBUTION WIDTH 15.9 % (11.5-14.5)
[2023-12-03 08:38] LABS: BILIRUBIN TOTAL 1.55 mg/dL (0.3-1.2); C-REACTIVE PROTEIN 2.52 MG/DL (0.00-0.29); CALCIUM 8.8 mg/dL (8.5-10.1); CREATININE SERUM 0.84 mg/dL (0.55-1.02); GFR 65.57; GLOBULINA 2.4 G/DL (2.4-3.5); MAGNESIUM 2.4 mg/dL (1.8-2.4); PHOSPHOROUS 3.3 mg/dL (2.5-4.9); POTASSIUM 4.67 mEq/L (3.5-5.1); TOTAL PROTEIN 5.4 gm/dL (6.4-8.2)
[2023-12-03 08:41] LABS: HEMOGLOBIN 8.8 g/dL (12.0-15.00)
[2023-12-03 16:00] VITALS: BP 97/57; O2SAT 98
[2023-12-04 00:36] VITALS: BP 112/73; O2SAT 97
[2023-12-04 08:00] VITALS: BP 139/81; O2SAT 97
[2023-12-04 16:00] VITALS: BP 115/63; O2SAT 96
[2023-12-05 00:12] VITALS: BP 123/83; O2SAT 94
[2023-12-05 08:00] VITALS: BP 104/61; O2SAT 97
[2023-12-05] MEDS ORDERED: ACETAMINOPHEN 325 MG TABLET PO PRN (08:00)
[2023-12-05] MEDS ORDERED: IPRATROPIUM BROMIDE 0.5 MG/2.5 ML AMPUL.NEB IH SCH (09:00)
[2023-12-05] MEDS ORDERED: POLYETHYLENE GLYCOL 3350 17 GM BLIST.PACK PO SCH (09:00)
[2023-12-05 16:33] VITALS: BP 99/56; O2SAT 100
[2023-12-05] MEDS ORDERED: VANCOMYCIN HCL 125 MG/7.5 ML BLIST.PACK PO SCH (18:00)
[2023-12-06 01:00] VITALS: BP 107/63; O2SAT 96
[2023-12-06 07:54] VITALS: BP 102/53; O2SAT 95
[2023-12-06 08:45] LABS: HEMATOCRIT 26.2 % (36.0-45.00); MEAN CELL VOLUME 91.2 fL (80.00-100.00); MEAN CORPUSCULAR HEMOGLOBIN 30.3 pg (27.00-32.0); MEAN CORPUSCULAR HGB CONC 33.3 g/dl (32.0-36.0); PLATELET COUNT 176 K/uL (150-450); RED BLOOD COUNT 2.87 M/uL (4.00-6.00); RED CELL DISTRIBUTION WIDTH 16.1 % (11.5-14.5)
[2023-12-06 08:50] LABS: HEMOGLOBIN 8.7 g/dL (12.0-15.00)
[2023-12-06 09:09] LABS: BILIRUBIN TOTAL 0.92 mg/dL (0.3-1.2); C-REACTIVE PROTEIN 1.29 MG/DL (0.00-0.29); CALCIUM 8.7 mg/dL (8.5-10.1); CREATININE SERUM 0.9 mg/dL (0.55-1.02); GFR 60.55; GLOBULINA 2.5 G/DL (2.4-3.5); MAGNESIUM 1.8 mg/dL (1.8-2.4); PHOSPHOROUS 3.9 mg/dL (2.5-4.9); POTASSIUM 4.39 mEq/L (3.5-5.1); TOTAL PROTEIN 5.5 gm/dL (6.4-8.2)
[2023-12-06 16:29] VITALS: BP 126/57; O2SAT 98
[2023-12-07] VITALS: BP 95/58; O2SAT 95
[2023-12-07 08:00] VITALS: BP 122/68; O2SAT 96
[2023-12-07 17:06] VITALS: BP 100/66; O2SAT 98
[2023-12-07] MEDS ORDERED: MINERAL OIL 30 ML BLIST.PACK PO STA (17:27)
[2023-12-07] MEDS ORDERED: LACTULOSE 20 G/30 ML BLIST.PACK PO STA (17:28)
[2023-12-07] MEDS ORDERED: MAGNESIUM HYDROXIDE 30 ML BLIST.PACK PO STA (17:28)
[2023-12-08] VITALS: BP 116/63; O2SAT 96
[2023-12-08 08:00] VITALS: BP 102/57; O2SAT 97
[2023-12-08] MEDS ORDERED: DIATRIZOATE MEGLUMINE, SODIUM 30 ML BOTTLE PO NR (09:00)
[2023-12-08] MEDS ORDERED: IPRATROPIUM BROMIDE 0.5 MG/2.5 ML AMPUL.NEB IH SCH (09:00)
[2023-12-08 18:18] VITALS: BP 127/85; O2SAT 97
[2023-12-09 00:56] VITALS: BP 126/69; O2SAT 97
[2023-12-09] MEDS ORDERED: DOXAZOSIN MESYLA8 MG PO (07:39)
[2023-12-09] MEDS ORDERED: INTESTINEX680 M1 PO (07:40)
[2023-12-09] MEDS ORDERED: CLOTRIMAZOLE45 G1 TOP (07:40)
[2023-12-09] MEDS ORDERED: PANTOPRAZOLE SO40 MG PO (07:40)
[2023-12-09] MEDS ORDERED: VANCOMYCIN HCL125 MG PO (07:41)
[2023-12-09] MEDS ORDERED: MIRALAX17 GM PO (07:45)
[2023-12-09] MEDS ORDERED: NASAL MIST126 ML NASAL (07:45)
[2023-12-09] MEDS ORDERED: PEPCID AC20 MG PO (07:51)
[2023-12-09 08:00] VITALS: BP 139/73; O2SAT 97
== END 2023-12-09 12:52 | DRG 602 ==
LOC: ER 16:06 → SURH 11-20 00:07
PROVIDERS: General Practice; Internal Medicine; Internal Medicine Infectious Disease; ADMIT Internal Medicine; ATTEND Internal Medicine
PROC: B44HZZZ Ultrasonography of Bilateral Lower Extremity Arteries (ICD-10-PCS; 2023-11-19)
PROC: B54DZZZ Ultrasonography of Bilateral Lower Extremity Veins (ICD-10-PCS; 2023-11-19)
PROC: BW21YZZ Computerized Tomography (CT Scan) of Abdomen and Pelvis using Other Contrast (ICD-10-PCS; 2023-11-21)
PROC: 02HV33Z Insertion of Infusion Device into Superior Vena Cava, Percutaneous Approach (ICD-10-PCS; 2023-11-21)
PROC: 0J9P0ZZ Drainage of Left Lower Leg Subcutaneous Tissue and Fascia, Open Approach (ICD-10-PCS; 2023-11-21)
PROC: 4A12X4Z Monitoring of Cardiac Electrical Activity, External Approach (ICD-10-PCS; 2023-11-21)
PROC: B54MZZZ Ultrasonography of Right Upper Extremity Veins (ICD-10-PCS; 2023-11-23)
PROC: B54MZZZ Ultrasonography of Right Upper Extremity Veins (ICD-10-PCS; 2023-11-23)
PROC: B34HZZZ Ultrasonography of Right Upper Extremity Arteries (ICD-10-PCS; 2023-11-24)
PROC: 0HBLXZX Excision of Left Lower Leg Skin, External Approach, Diagnostic (ICD-10-PCS; principal; 2023-11-30)
PROC: 3E0F7GC Introduction of Other Therapeutic Substance into Respiratory Tract, Via Natural or Artificial Opening (ICD-10-PCS; 2023-12-05)
PROC: 8E0ZXY6 Isolation (ICD-10-PCS; 2023-12-06)
PROC: BW21YZZ Computerized Tomography (CT Scan) of Abdomen and Pelvis using Other Contrast (ICD-10-PCS; 2023-12-08)
DX: L92.8 Other granulomatous disorders of the skin and subcutaneous tissue (principal); I50.33 Acute on chronic diastolic (congestive) heart failure; E27.49 Other adrenocortical insufficiency; I48.92 Unspecified atrial flutter; A04.72 Enterocolitis due to Clostridium difficile, not specified as recurrent; L03.116 Cellulitis of left lower limb; L03.115 Cellulitis of right lower limb; I87.2 Venous insufficiency (chronic) (peripheral); I48.0 Paroxysmal atrial fibrillation; I11.0 Hypertensive heart disease with heart failure; R23.8 Other skin changes; B96.89 Other specified bacterial agents as the cause of diseases classified elsewhere; K59.00 Constipation, unspecified; R06.02 Shortness of breath; R22.31 Localized swelling, mass and lump, right upper limb; G47.33 Obstructive sleep apnea (adult) (pediatric); Z79.01 Long term (current) use of anticoagulants; Z95.818 Presence of other cardiac implants and grafts

== ENCOUNTER 2024-06-14 19:58 | Inpatient (IN) | payer OTHER ==
[~2024-06-14] VITALS: Ht 167.6 cm; Wt 85.7 kg
[~2024-06-14 19:58] MED LIST changes: +CLOTRIMAZOLE45 G1 TOP; +DOXAZOSIN MESYLA8 MG PO; +MIRALAX17 GM PO; +NASAL MIST126 ML NASAL; +VANCOMYCIN HCL125 MG PO
[2024-06-14] MEDS ORDERED: AMBIEN5 MG PO (20:21)
[2024-06-14] MEDS ORDERED: HYDRALAZINE HCL50 MG PO (20:21)
[2024-06-14] MEDS ORDERED: HORIZANT300 MG (20:21)
[2024-06-14] MEDS ORDERED: CARDURA8 MG PO (20:21)
[2024-06-14] MEDS ORDERED: PEPCID AC20 MG (20:22)
[2024-06-14] MEDS ORDERED: BUMETANIDE1 MG PO (20:22)
[2024-06-14] MEDS ORDERED: ANUSOL-HC30 G2 (20:22)
--- NOTE | 2024-06-14 20:26 | NUR ---
PTE ALERTA Y ORIENTADA X3, SE JERRY S/V. PTE REFIERE QUE DR. GALE CASEY LE ENTREGO REFERIDO PARA QUE VIENIERA A RONEL DE EMERGENCIAS. SE OBSERVA AMBAS PIERNAS CON INFLAMACION Y CELLULITIS. SE UBICA EN OBSERVACION
[2024-06-14] MEDS ORDERED: FAMOTIDINE/PF 20 MG in 0.9 % SODIUM CHLORIDE 8 ML IV PUSH SCH (21:10)
[2024-06-14] MEDS ORDERED: 0.9 % SODIUM CHLORIDE 1,000 ML IV SCH (21:15)
[2024-06-14] MEDS ORDERED: ACETAMINOPHEN 500 MG GEL..CAP PO PRN (21:15)
[2024-06-14] MEDS ORDERED: FAMOTIDINE/PF 20 MG/2 ML VIAL ONE (22:06)
[2024-06-14] MEDS ORDERED: ACETAMINOPHEN 500 MG GEL..CAP PO ONE (22:06)
--- NOTE | 2024-06-14 22:16 | NUR ---
PACIENTE ALERTA Y ORIENTADA X3. SE EDUCA A PACIENTE SOBRE PROCESO DE CANALIZACION, FARTUN DE MUESTRAS Y ADMINISTRACION DE MEDICAMENTOS, REFIERE ENTENDER. SE EJECUTAN ORDENES BAJO MEDIDAS ASEPTICAS. PENDIENTE A CONSULTAS MEDICAS.
[2024-06-14] MEDS ORDERED: CEFTRIAXONE SODIUM 2,000 MG in 0.9 % SODIUM CHLORIDE 100 ML IV SCH (22:46)
[2024-06-14] MEDS ORDERED: VANCOMYCIN HCL 1,000 MG VIAL IV ONE (23:00)
[2024-06-14 23:16] LABS: HEMATOCRIT 32.5 % (36.0-45.00); HEMOGLOBIN 10.9 g/dL (12.0-15.00); MEAN CELL VOLUME 84.7 fL (80.00-100.00); MEAN CORPUSCULAR HEMOGLOBIN 28.4 pg (27.00-32.0); MEAN CORPUSCULAR HGB CONC 33.5 g/dl (32.0-36.0); PLATELET COUNT 178 K/uL (150-450); RED BLOOD COUNT 3.84 M/uL (4.00-6.00); RED CELL DISTRIBUTION WIDTH 16.4 % (11.5-14.5)
[2024-06-14 23:27] LABS: PH,URINE 7.5 (5.0-8.0); URINE APPEARANCE Clear; URINE BILIRRUBIN Negative (NEGATIVE); URINE BLOOD Negative; URINE COLOR Yellow; URINE GLUCOSE Negative (NEGATIVE); URINE KETONE Negative (NEGATIVE); URINE LEUKOCYTE Trace; URINE NITRATE Negative; URINE PROTEIN Negative (NEGATIVE); URINE UROBILINOGEN 0.2 E.U./dl
[2024-06-14 23:32] LABS: URINE BACTERIA 30.5 uL (0.0-1933); URINE WBC 47.2 uL (0.0-23.2)
[2024-06-14 23:32] LABS: ERYTHROCYTE SEDIMENTATION RATE 16 mm/hr
[2024-06-14 23:37] LABS: INR 1.05; PARTIAL THROMBOPLASTIN TIME 24.1 SECONDS (22.0-34.0); PROTHROMBIN TIME 11.4 SECONDS (9.0-11.5)
[2024-06-14 23:42] LABS: ALBUMIN 3.6 gm/dL (3.4-5.0); BILIRUBIN TOTAL 1.91 mg/dL (0.3-1.2); CALCIUM 9.1 mg/dL (8.5-10.1); CREATININE SERUM 1.1 mg/dL (0.55-1.02); GFR 47.91; GLOBULINA 2.9 G/DL (2.4-3.5); POTASSIUM 4.52 mEq/L (3.5-5.1); TOTAL PROTEIN 6.5 gm/dL (6.4-8.2)
[2024-06-14 23:44] LABS: C-REACTIVE PROTEIN 1.42 MG/DL (0.00-0.29)
[2024-06-15] MEDS ORDERED: CEFTRIAXONE SODIUM 2,000 MG VIAL ONE (00:08)
[2024-06-15] MEDS ORDERED: VANCOMYCIN HCL 1,000 MG VIAL ONE (00:08)
[2024-06-15 07:50] VITALS: BP 133/68; O2SAT 98
[2024-06-15] MEDS ORDERED: SODIUM HYPOCHLORITE 1OZ TOP SCH (09:00)
[2024-06-15] MEDS ORDERED: POLYETHYLENE GLYCOL 3350 17 GM BLIST.PACK PO SCH (09:00)
[2024-06-15] MEDS ORDERED: BUMETANIDE 1 MG TABLET PO SCH (09:00)
[2024-06-15] MEDS ORDERED: hydrALAZINE HCL 25 MG TABLET PO SCH (09:00)
[2024-06-15] MEDS ORDERED: METOPROLOL SUCCINATE 50 MG TAB.SR.24H PO SCH (09:00)
[2024-06-15] MEDS ORDERED: SPIRONOLACTONE 25 MG TABLET PO SCH (09:00)
[2024-06-15] MEDS ORDERED: LACTOBACILLUS ACIDOPHILUS 1 CAP CAP PO SCH (09:00)
[2024-06-15] MEDS ORDERED: VANCOMYCIN HCL 1,000 MG VIAL IV SCH ×2 (09:00→21:00)
[2024-06-15] MEDS ORDERED: ENOXAPARIN SODIUM 40 MG/0.4 ML SYRINGE SUBCUTANEO SCH (09:00)
[2024-06-15] MEDS ORDERED: DOXAZOSIN MESYLATE 8 MG TABLET PO SCH (17:00)
[2024-06-15] MEDS ORDERED: GABAPENTIN 800 MG TABLET PO SCH (17:00)
[2024-06-15] MEDS ORDERED: ZOLPIDEM TARTRATE 5 MG TABLET PO SCH (21:00)
[2024-06-16 02:20] VITALS: BP 112/72; O2SAT 93
[2024-06-16 08:41] VITALS: BP 130/65; O2SAT 95
[2024-06-16] MEDS ORDERED: PREDNISONE 1 MG TABLET PO SCH (09:00)
[2024-06-16] MEDS ORDERED: GABAPENTIN 400 MG CAPSULE PO NR (12:00)
[2024-06-16 17:43] VITALS: BP 143/63
[2024-06-16] MEDS ORDERED: FAMOTIDINE/PF 20 MG in 0.9 % SODIUM CHLORIDE 8 ML IV PUSH SCH (21:00)
[2024-06-17 03:57] VITALS: BP 100/54; O2SAT 94
[2024-06-17] MEDS ORDERED: FAMOTIDINE/PF 20 MG/2 ML VIAL ONE (07:28)
[2024-06-17] MEDS ORDERED: CEFTRIAXONE SODIUM 2,000 MG VIAL ONE (07:28)
[2024-06-17 08:43] VITALS: BP 123/62; O2SAT 92
[2024-06-17] MEDS ORDERED: GABAPENTIN 400 MG CAPSULE PO SCH (09:00)
[2024-06-17 11:29] LABS: ABG PH 7.478 (7.35-7.45); ABG PO2 81.6 mmHg (80-100); ABG pCO2 33.8 mmHg (35-45); BASE EXCESS 1.6 mmol/l; BICARBONATE 24.5 mmol/l (23-25); SaO2 96.8 %; Tco2 25.5 mmol/l
[2024-06-17 11:40] LABS: allen test SATISFACTORY; o2 21 %; puncture site RADIAL LEFT
[2024-06-17] MEDS ORDERED: LIDOCAINE 5% 1 PATCH ADH. TOP SCH (11:43)
[2024-06-17] MEDS ORDERED: LACTOBACILLUS ACIDOPHILUS 1 CAP CAP PO SCH (13:00)
[2024-06-17] MEDS ORDERED: AMINO ACIDS/PROTEIN HYDROLYS 30 ML BLIST.PACK PO SCH (17:00)
[2024-06-17 17:19] VITALS: BP 150/72; O2SAT 95
[2024-06-17 18:21] VITALS: BP 137/57
[2024-06-18 01:29] VITALS: BP 127/54; O2SAT 95
[2024-06-18 06:24] LABS: HEMATOCRIT 26.5 % (36.0-45.00); HEMOGLOBIN 9.2 g/dL (12.0-15.00); MEAN CELL VOLUME 84.5 fL (80.00-100.00); MEAN CORPUSCULAR HEMOGLOBIN 29.3 pg (27.00-32.0); MEAN CORPUSCULAR HGB CONC 34.7 g/dl (32.0-36.0); PLATELET COUNT 141 K/uL (150-450); RED BLOOD COUNT 3.14 M/uL (4.00-6.00); RED CELL DISTRIBUTION WIDTH 16.8 % (11.5-14.5)
[2024-06-18 06:53] LABS: ERYTHROCYTE SEDIMENTATION RATE 15 mm/hr
[2024-06-18 07:32] LABS: ALBUMIN 2.9 gm/dL (3.4-5.0); BILIRUBIN TOTAL 1.49 mg/dL (0.3-1.2); CALCIUM 8.3 mg/dL (8.5-10.1); CREATININE SERUM 0.89 mg/dL (0.55-1.02); GFR 61.18; GLOBULINA 2.4 G/DL (2.4-3.5); MAGNESIUM 1.9 mg/dL (1.8-2.4); POTASSIUM 3.8 mEq/L (3.5-5.1); TOTAL PROTEIN 5.3 gm/dL (6.4-8.2)
[2024-06-18 07:33] LABS: C-REACTIVE PROTEIN 1.85 MG/DL (0.00-0.29)
[2024-06-18] MEDS ORDERED: PATIENTS OWN MEDICATION (MEDICAMENTO EN PISO) PO SCH (09:00)
[2024-06-18 09:18] VITALS: BP 143/77; O2SAT 98
[2024-06-18 18:44] VITALS: BP 157/68
[2024-06-19 02:14] VITALS: BP 146/66; O2SAT 97
[2024-06-19 08:40] VITALS: BP 107/57; O2SAT 95
[2024-06-19 17:00] VITALS: BP 118/68; O2SAT 99
[2024-06-19] MEDS ORDERED: VANCOMYCIN HCL 5 MG/ML REDILUIDO IV SCH (21:00)
[2024-06-19] MEDS ORDERED: FAMOtidine 20 MG TABLET PO SCH (21:00)
[2024-06-20 01:40] VITALS: BP 142/75; O2SAT 99
[2024-06-20 08:31] VITALS: BP 120/68
[2024-06-20] MEDS ORDERED: FAMOtidine 20 MG TABLET PO SCH (09:00)
[2024-06-20] MEDS ORDERED: ZINC OXIDE 30 GM,SILVER SULFADIAZINE 50 GM,NYSTATIN 30 GM TOP SCH (09:00)
[2024-06-20 18:21] VITALS: BP 134/63
[2024-06-20] MEDS ORDERED: GABAPENTIN 800 MG TABLET PO SCH (21:00)
[2024-06-20] MEDS ORDERED: DOXAZOSIN MESYLATE 8 MG TABLET PO SCH (21:00)
[2024-06-21 04:42] VITALS: BP 128/69
[2024-06-21 09:25] VITALS: BP 119/63; O2SAT 97
[2024-06-21 12:18] LABS: ALBUMIN 3.4 gm/dL (3.4-5.0); BILIRUBIN TOTAL 1.51 mg/dL (0.3-1.2); CALCIUM 9.1 mg/dL (8.5-10.1); CREATININE SERUM 0.98 mg/dL (0.55-1.02); GFR 54.75; GLOBULINA 2.8 G/DL (2.4-3.5); PHOSPHOROUS 3.2 mg/dL (2.5-4.9); POTASSIUM 3.8 mEq/L (3.5-5.1); TOTAL PROTEIN 6.2 gm/dL (6.4-8.2)
[2024-06-21] MEDS ORDERED: PEPCID AC20 MG PO ×2 (17:35→18:21)
[2024-06-21] MEDS ORDERED: INTESTINEX680 M1 PO (17:35)
[2024-06-21] MEDS ORDERED: ANUSOL-HC30 G2 TOP (17:36)
[2024-06-21] MEDS ORDERED: SILVADENE20 GM TOP (17:38)
[2024-06-21] MEDS ORDERED: GABAPENTIN400 MG PO (18:13)
[2024-06-21] MEDS ORDERED: BUMETANIDE1 MG PO (18:13)
[2024-06-21] MEDS ORDERED: HYDROCORTISONE5 MG PO (18:13)
[2024-06-21] MEDS ORDERED: TOPROL XL50 M1 PO (18:13)
[2024-06-21] MEDS ORDERED: DOXAZOSIN MESYLA8 MG PO (18:13)
[2024-06-21] MEDS ORDERED: HYDRALAZINE HCL25 MG PO (18:13)
[2024-06-21] MEDS ORDERED: ZOLPIDEM TARTRAT5 MG PO (18:13)
[2024-06-21] MEDS ORDERED: SPIRONOLACTONE25 MG PO (18:13)
[2024-06-21] MEDS ORDERED: PRE PROTEIN1 EACH PO (18:15)
[2024-06-21 18:24] VITALS: BP 136/63; O2SAT 96
== END 2024-06-21 18:30 | disposition home or self-care (01) | DRG 299 ==
LOC: ER 19:58 → MEDJ 22:51
PROVIDERS: General Practice; Specialist/Technologist, Other Nephrology; ADMIT Internal Medicine; ATTEND Internal Medicine
PROC: B54DZZZ Ultrasonography of Bilateral Lower Extremity Veins (ICD-10-PCS; principal; 2024-06-16)
PROC: B44HZZZ Ultrasonography of Bilateral Lower Extremity Arteries (ICD-10-PCS; 2024-06-16)
PROC: 0JBN3ZZ Excision of Right Lower Leg Subcutaneous Tissue and Fascia, Percutaneous Approach (ICD-10-PCS; 2024-06-20)
DX: I83.018 Varicose veins of right lower extremity with ulcer other part of lower leg (principal); I50.33 Acute on chronic diastolic (congestive) heart failure; L03.115 Cellulitis of right lower limb; L97.818 Non-pressure chronic ulcer of other part of right lower leg with other specified severity; E87.1 Hypo-osmolality and hyponatremia; E27.49 Other adrenocortical insufficiency; L08.89 Other specified local infections of the skin and subcutaneous tissue; I73.89 Other specified peripheral vascular diseases; I87.2 Venous insufficiency (chronic) (peripheral); I11.0 Hypertensive heart disease with heart failure; G62.89 Other specified polyneuropathies; I12.9 Hypertensive chronic kidney disease with stage 1 through stage 4 chronic kidney disease, or unspecified chronic kidney disease; N18.9 Chronic kidney disease, unspecified; I48.91 Unspecified atrial fibrillation

== ENCOUNTER 2024-08-14 12:38 | Outpatient (CLI) | payer OTHER ==
[~2024-08-14 12:38] MED LIST changes: +AMBIEN5 MG PO; +ANUSOL-HC30 G2; +ANUSOL-HC30 G2 TOP; +HORIZANT300 MG; +HYDRALAZINE HCL50 MG PO; +HYDROCORTISONE5 MG PO; +PEPCID AC20 MG; +SILVADENE20 GM TOP; +ZOLPIDEM TARTRAT5 MG PO
== END 2024-08-14 12:39 | disposition home or self-care (01) ==
LOC: NUCLEAR 12:38
PROVIDERS: ATTEND Psychiatry & Neurology Clinical Neurophysiology
DX: G45.1 Carotid artery syndrome (hemispheric) (principal)

== ENCOUNTER 2024-09-18 17:49 | Inpatient (IN) | payer OTHER ==
[~2024-09-18] VITALS: Ht 167.6 cm; Wt 104.3 kg
--- NOTE | 2024-09-18 18:13 | NUR ---
SE RECIBE PACIENTE ALERTA Y CONCIENTE X3. LA MISMA REFIERE VENIR POR ORDEN DEL DR. DEACON HURT. LA P[ACIENTE INDICA TENER EDEMA EN [place] Y ABDOMEN. SE OBSERVA DISTENCION ABDOMINAL Y SENSIBLE AL TACTO. REFIERE QUE TREJO INTERNISTA ES DR. ALFARO. SE PROCEDE A ARTURO S/V A LA PACIENTE Y SE UBICA EN CAMA 13 CON BARANDAS ELEVADAS Y NIVEL MAS BAJO DE TAMMIE.
[2024-09-18 20:05] LABS: BASO % 0.0 % (0.1-1.2); EOS # 0.00 (0.04-0.54); EOS % 0.0 % (0.7-7.0); LYMPH # 0.45 (1.18-3.74); LYMPH % 8.0 % (19.3-53.1); MEAN PLATELET VOLUME 12.20 fl (9.4-12.4); MONO # 0.09 (0.24-0.82); MONO % 1.6 % (4.7-12.5); NEUT # 5.09 (1.56-6.13); NEUT % 89.9 % (34.0-71.1); RED CELL DISTRIBUTION WIDTH 16.3 % (11.6-14.4)
--- NOTE | 2024-09-18 20:12 | NUR ---
SALINAS VENKATA EJECUTA ORDENES MEDICAS EN TREJO TOTALIDAD
[2024-09-18 20:24] LABS: INR 1.03
--- NOTE | 2024-09-18 20:27 | NUR ---
SE ORIENTA A PACIENTE SOBRE TX MEDICO Y EL MISMO REFIERE ENTENDER Y ACEPTAR TARYN. SE PROCEDE A CANALIZAR PACIENTE BAJO MEIDAS ASEPTICAS Y TRAY DE EDEMA Y ERITEMA.
[2024-09-18 20:28] LABS: ALT/SGPT 21.0 U/L (12-78); AST/SGOT 13.0 U/L (15-37); BILIRUBIN TOTAL 2.29 mg/dL (0.3-1.2); BUN CREA RATIO 13.0 (7.0-25.0); CREATININE SERUM 1.08 mg/dL (0.55-1.02); GFR 48.94; GLOBULINA 3.5 G/DL (2.4-3.5); GLUCOSE FASTING 171.0 mg/dL (65-100); OSMOLALITY SERUM 271.0 MOSM/KG (275-295)
[2024-09-18 20:34] LABS: D DIMER 5.02 MG/L
[2024-09-18 23:23] LABS: URINE APPEARANCE Clear; URINE BILIRRUBIN Negative (NEGATIVE); URINE BLOOD Negative; URINE COLOR Yellow; URINE GLUCOSE Negative (NEGATIVE); URINE KETONE Negative (NEGATIVE); URINE LEUKOCYTE Negative; URINE NITRATE Negative; URINE PROTEIN Trace (NEGATIVE); URINE UROBILINOGEN 0.2 E.U./dl
[2024-09-18 23:29] LABS: URINE BACTERIA 77.1 uL (0.0-1933); URINE EPITHELIAL CELLS 4.2 uL (0.0-38.8); URINE RBC 6.6 uL (0.0-20.8); URINE WBC 4.5 uL (0.0-23.2)
[2024-09-18 23:42] LABS: URINE CAST 0.00 uL (0.0-1.40)
[2024-09-19] MEDS ORDERED: ACETAMINOPHEN 500 MG GEL..CAP PO PRN (00:45)
[2024-09-19] MEDS ORDERED: IPRATROPIUM BROMIDE 0.5 MG/2.5 ML AMPUL.NEB IH SCH (01:00)
[2024-09-19 04:22] VITALS: BP 128/69; O2SAT 97
[2024-09-19] MEDS ORDERED: IPRATROPIUM BROMIDE 0.5 MG/2.5 ML AMPUL.NEB IH ONE (08:19)
[2024-09-19 08:52] VITALS: BP 135/76; O2SAT 100
[2024-09-19] MEDS ORDERED: SPIRONOLACTONE 25 MG TABLET PO SCH (09:00)
[2024-09-19] MEDS ORDERED: GABAPENTIN 400 MG CAPSULE PO SCH (09:00)
[2024-09-19] MEDS ORDERED: FAMOTIDINE/PF 20 MG in 0.9 % SODIUM CHLORIDE 8 ML IV PUSH SCH (09:00)
[2024-09-19] MEDS ORDERED: ENOXAPARIN SODIUM 40 MG/0.4 ML SYRINGE SUBCUTANEO SCH (09:00)
[2024-09-19] MEDS ORDERED: METOPROLOL SUCCINATE 50 MG TAB.SR.24H PO SCH (09:00)
[2024-09-19] MEDS ORDERED: CEFTRIAXONE SODIUM 2,000 MG in 0.9 % SODIUM CHLORIDE 100 ML IV SCH (17:00)
[2024-09-19] MEDS ORDERED: DOXAZOSIN MESYLATE 8 MG TABLET PO SCH (17:00)
[2024-09-19 17:45] VITALS: BP 120/63
[2024-09-19] MEDS ORDERED: ZOLPIDEM TARTRATE 10 MG TABLET PO SCH (21:00)
[2024-09-20 02:33] VITALS: BP 145/78; O2SAT 96
[2024-09-20 08:56] VITALS: BP 115/55; O2SAT 98
[2024-09-20 18:54] VITALS: BP 115/72
[2024-09-20 23:13] LABS: URINE APPEARANCE Clear; URINE BILIRRUBIN Negative (NEGATIVE); URINE BLOOD Moderate; URINE COLOR Yellow; URINE GLUCOSE Negative (NEGATIVE); URINE KETONE Negative (NEGATIVE); URINE LEUKOCYTE Small; URINE NITRATE Negative; URINE PROTEIN Negative (NEGATIVE); URINE UROBILINOGEN 0.2 E.U./dl
[2024-09-20 23:17] LABS: URINE BACTERIA 40.3 uL (0.0-1933); URINE EPITHELIAL CELLS 2.8 uL (0.0-38.8); URINE RBC 44.6 uL (0.0-20.8); URINE WBC 42.2 uL (0.0-23.2)
[2024-09-20 23:19] LABS: URINE CAST 0.44 uL (0.0-1.40)
[2024-09-21 02:09] VITALS: BP 145/64; O2SAT 99
[2024-09-21 06:30] LABS: BASO % 0.0 % (0.1-1.2); EOS # 0.01 (0.04-0.54); EOS % 0.1 % (0.7-7.0); LYMPH # 0.77 (1.18-3.74); LYMPH % 9.3 % (19.3-53.1); MEAN PLATELET VOLUME 12.00 fl (9.4-12.4); MONO # 0.88 (0.24-0.82); MONO % 10.7 % (4.7-12.5); NEUT # 6.51 (1.56-6.13); NEUT % 78.9 % (34.0-71.1); RED CELL DISTRIBUTION WIDTH 16.3 % (11.6-14.4)
[2024-09-21 07:45] LABS: BUN CREA RATIO 27.0 (7.0-25.0); CREATININE SERUM 1.23 mg/dL (0.55-1.02); GFR 42.12; GLUCOSE FASTING 125.0 mg/dL (65-100); OSMOLALITY SERUM 281.0 MOSM/KG (275-295)
[2024-09-21 08:43] VITALS: BP 139/61; O2SAT 97
[2024-09-21] MEDS ORDERED: POLYETHYLENE GLYCOL 3350 17 GM BLIST.PACK PO SCH ×2 (17:00)
[2024-09-21 18:44] VITALS: BP 125/72
[2024-09-22 01:44] VITALS: BP 145/77; O2SAT 96
[2024-09-22 07:00] VITALS: BP 135/73; O2SAT 90
[2024-09-22] MEDS ORDERED: FLUCONAZOLE IN NACL,ISO-OSM 200 MG/100 ML PIGGYBAG IV NR (14:00)
[2024-09-22 18:17] VITALS: BP 108/67; O2SAT 99
[2024-09-22] MEDS ORDERED: ZOLPIDEM TARTRATE 10 MG TABLET PO SCH (21:00)
[2024-09-22] MEDS ORDERED: GABAPENTIN 800 MG TABLET PO SCH (21:00)
[2024-09-23 01:41] VITALS: BP 156/73; O2SAT 97
[2024-09-23 07:00] VITALS: BP 106/721; O2SAT 90
[2024-09-23] MEDS ORDERED: FLUCONAZOLE IN NACL,ISO-OSM 50 ML IV SCH (12:00)
[2024-09-23] MEDS ORDERED: FLUCONAZOLE IN NACL,ISO-OSM 2 MG/ML ML IV SCH (13:00)
[2024-09-23 16:00] VITALS: BP 122/52; O2SAT 97
[2024-09-23] MEDS ORDERED: CLOTRIMAZOLE 45 GM TUBE VAG NR (18:00)
[2024-09-24 02:09] VITALS: BP 155/80; O2SAT 96
[2024-09-24 06:38] LABS: BASO % 0.2 % (0.1-1.2); EOS # 0.11 (0.04-0.54); EOS % 0.9 % (0.7-7.0); LYMPH # 1.25 (1.18-3.74); LYMPH % 9.9 % (19.3-53.1); MEAN PLATELET VOLUME 12.20 fl (9.4-12.4); MONO # 1.14 (0.24-0.82); MONO % 9.0 % (4.7-12.5); NEUT # 9.90 (1.56-6.13); NEUT % 78.6 % (34.0-71.1); RED CELL DISTRIBUTION WIDTH 16.2 % (11.6-14.4)
[2024-09-24 06:44] LABS: ALT/SGPT 22.0 U/L (12-78); AST/SGOT 19.0 U/L (15-37); BILIRUBIN TOTAL 1.31 mg/dL (0.3-1.2); BUN CREA RATIO 37.0 (7.0-25.0); CREATININE SERUM 1.09 mg/dL (0.55-1.02); GFR 48.42; GLOBULINA 2.7 G/DL (2.4-3.5); GLUCOSE FASTING 111.0 mg/dL (65-100); OSMOLALITY SERUM 279.0 MOSM/KG (275-295)
[2024-09-24] MEDS ORDERED: ORPHENADRINE CITRATE 30 MG/ML AMPUL IV SCH (09:00)
[2024-09-24 10:15] VITALS: BP 90/50; O2SAT 99
[2024-09-24 18:35] VITALS: BP 151/66
[2024-09-25 01:12] VITALS: BP 119/62; O2SAT 100
[2024-09-25] MEDS ORDERED: CARDURA8 MG PO (07:46)
[2024-09-25] MEDS ORDERED: SPIRONOLACTONE25 MG PO (07:49)
[2024-09-25] MEDS ORDERED: GABAPENTIN400 MG PO (07:50)
[2024-09-25] MEDS ORDERED: PRE PROTEIN1 EACH PO (07:51)
[2024-09-25] MEDS ORDERED: BUMETANIDE1 MG PO (07:51)
[2024-09-25] MEDS ORDERED: INTESTINEX680 M1 PO (07:51)
[2024-09-25] MEDS ORDERED: PEPCID AC20 MG PO (07:59)
[2024-09-25] MEDS ORDERED: GABAPENTIN800 MG PO (08:06)
[2024-09-25] MEDS ORDERED: HYDRALAZINE HCL25 MG PO (08:07)
[2024-09-25] MEDS ORDERED: AMBIEN5 MG PO (08:11)
[2024-09-25] MEDS ORDERED: TOPROL XL50 M1 PO (08:11)
[2024-09-25 09:13] VITALS: BP 117/64; O2SAT 95
== END 2024-09-25 12:52 | disposition home or self-care (01) | DRG 682 ==
LOC: ER 17:49 → SEC-K 09-19 00:44 → MEDJ 09-19 10:13
PROVIDERS: General Practice; Internal Medicine; Internal Medicine Infectious Disease; ADMIT Internal Medicine; ATTEND Internal Medicine
PROC: BW21ZZZ Computerized Tomography (CT Scan) of Abdomen and Pelvis (ICD-10-PCS; principal; 2024-09-18)
PROC: B24BZZZ Ultrasonography of Heart with Aorta (ICD-10-PCS; 2024-09-19)
DX: I12.9 Hypertensive chronic kidney disease with stage 1 through stage 4 chronic kidney disease, or unspecified chronic kidney disease (principal); I50.23 Acute on chronic systolic (congestive) heart failure; N39.0 Urinary tract infection, site not specified; I73.9 Peripheral vascular disease, unspecified; I48.91 Unspecified atrial fibrillation; N18.9 Chronic kidney disease, unspecified; G47.30 Sleep apnea, unspecified; G62.9 Polyneuropathy, unspecified

== ENCOUNTER 2024-12-02 13:34 | Inpatient (IN) | payer OTHER ==
[~2024-12-02] VITALS: Ht 152.4 cm; Wt 90.7 kg
[2024-12-02] MEDS ORDERED: PIPERACILLIN/TAZOBACTAM SODIUM 3.375 GM VIAL IV STA (14:12)
[2024-12-02 16:06] LABS: BASO % 0.3 % (0.1-1.2); EOS # 0.12 (0.04-0.54); EOS % 1.2 % (0.7-7.0); LYMPH # 1.23 (1.18-3.74); LYMPH % 12.6 % (19.3-53.1); MEAN PLATELET VOLUME 12.00 fl (9.4-12.4); MONO # 1.06 (0.24-0.82); MONO % 10.9 % (4.7-12.5); NEUT # 7.26 (1.56-6.13); NEUT % 74.6 % (34.0-71.1); RED CELL DISTRIBUTION WIDTH 15.7 % (11.6-14.4)
[2024-12-02 16:18] LABS: ERYTHROCYTE SEDIMENTATION RATE 14 mm/hr (0-30)
[2024-12-02 16:25] LABS: INR 1.1
[2024-12-02 16:30] LABS: ALT/SGPT 17.0 U/L (12-78); AST/SGOT 24.0 U/L (15-37); BILIRUBIN TOTAL 2.45 mg/dL (0.3-1.2); BUN CREA RATIO 21.0 (7.0-25.0); CREATININE SERUM 1.07 mg/dL (0.55-1.02); GFR 49.47; GLOBULINA 2.8 G/DL (2.4-3.5); GLUCOSE FASTING 106.0 mg/dL (65-100); OSMOLALITY SERUM 263.0 MOSM/KG (275-295)
[2024-12-02] MEDS ORDERED: VANCOMYCIN HCL 1,000 MG VIAL IV SCH (20:18)
[2024-12-02] MEDS ORDERED: BUMETANIDE 1 MG TABLET PO SCH (20:19)
[2024-12-02] MEDS ORDERED: GABAPENTIN 800 MG TABLET PO SCH (20:19)
[2024-12-02] MEDS ORDERED: DOXAZOSIN MESYLATE 4 MG TABLET PO SCH (20:20)
[2024-12-02] MEDS ORDERED: ACETAMINOPHEN 500 MG GEL..CAP PO PRN (20:30)
[2024-12-02] MEDS ORDERED: CEFEPIME HCL 2,000 MG in DEXTROSE 5 % IN WATER 100 ML IV SCH (21:00)
[2024-12-02] MEDS ORDERED: BUMETANIDE 2.5 MG/10 ML VIAL ONE (21:58)
[2024-12-02] MEDS ORDERED: CEFEPIME HCL 2,000 MG VIAL ONE (21:59)
[2024-12-02] MEDS ORDERED: VANCOMYCIN HCL 1,000 MG VIAL ONE (23:58)
[2024-12-03 01:10] LABS: INR 1.09
[2024-12-03 01:34] VITALS: BP 138/63; O2SAT 100
[2024-12-03 02:00] VITALS: BP 161/60; O2SAT 100
[2024-12-03 08:50] VITALS: BP 125/52; O2SAT 95
[2024-12-03] MEDS ORDERED: GABAPENTIN 400 MG CAPSULE PO SCH (09:00)
[2024-12-03] MEDS ORDERED: SPIRONOLACTONE 25 MG TABLET PO SCH (09:00)
[2024-12-03] MEDS ORDERED: METOPROLOL SUCCINATE 50 MG TAB.SR.24H PO SCH (09:00)
[2024-12-03] MEDS ORDERED: PREDNISONE 5 MG TABLET PO SCH (09:00)
[2024-12-03] MEDS ORDERED: ENOXAPARIN SODIUM 40 MG/0.4 ML SYRINGE SUBCUTANEO SCH (09:00)
[2024-12-03 17:10] VITALS: BP 126/56; O2SAT 96
[2024-12-03] MEDS ORDERED: PIPERACILLIN/TAZOBACTAM SODIUM 3.375 GM in DEXTROSE 5 % IN WATER 100 ML IV SCH (18:00)
[2024-12-03] MEDS ORDERED: ZOLPIDEM TARTRATE 5 MG TABLET PO SCH (21:00)
[2024-12-03] MEDS ORDERED: POLYETHYLENE GLYCOL 3350 17 GM BLIST.PACK PO SCH (21:00)
[2024-12-04 01:11] VITALS: BP 125/64; O2SAT 96
[2024-12-04] MEDS ORDERED: LACTOBACILLUS ACIDOPHILUS 1 CAP CAP PO SCH (09:00)
[2024-12-04] MEDS ORDERED: FAMOTIDINE/PF 20 MG in 0.9 % SODIUM CHLORIDE 8 ML IV PUSH SCH (09:00)
[2024-12-04] MEDS ORDERED: VANCOMYCIN HCL 5 MG/ML REDILUIDO IV SCH (09:00)
[2024-12-04 09:20] VITALS: BP 120/77; O2SAT 96
[2024-12-04 10:42] LABS: URINE APPEARANCE Clear; URINE BILIRRUBIN Negative (NEGATIVE); URINE BLOOD Negative; URINE COLOR Yellow; URINE GLUCOSE Negative (NEGATIVE); URINE KETONE Negative (NEGATIVE); URINE LEUKOCYTE Negative; URINE NITRATE Negative; URINE PROTEIN Negative (NEGATIVE); URINE UROBILINOGEN 0.2 E.U./dl
[2024-12-04 10:46] LABS: URINE BACTERIA 9.6 uL (0.0-1933); URINE RBC 4.3 uL (0.0-20.8)
[2024-12-04 10:47] LABS: URINE CAST 0.00 uL (0.0-1.40); URINE EPITHELIAL CELLS 1.3 uL (0.0-38.8); URINE WBC 1.0 uL (0.0-23.2)
[2024-12-04 17:49] VITALS: BP 163/52
[2024-12-05 01:32] VITALS: BP 158/64; O2SAT 93
[2024-12-05 07:09] LABS: BASO % 0.4 % (0.1-1.2); EOS # 0.16 (0.04-0.54); EOS % 2.3 % (0.7-7.0); LYMPH # 0.94 (1.18-3.74); LYMPH % 13.4 % (19.3-53.1); MEAN PLATELET VOLUME 12.10 fl (9.4-12.4); MONO # 0.85 (0.24-0.82); NEUT # 4.99 (1.56-6.13); NEUT % 71.4 % (34.0-71.1); RED CELL DISTRIBUTION WIDTH 15.7 % (11.6-14.4)
[2024-12-05 07:17] LABS: MONO % 12.1 % (4.7-12.5)
[2024-12-05 07:30] LABS: ALT/SGPT 13.0 U/L (12-78); AST/SGOT 9.0 U/L (15-37); BILIRUBIN TOTAL 1.98 mg/dL (0.3-1.2); BUN CREA RATIO 16.0 (7.0-25.0); CREATININE SERUM 0.98 mg/dL (0.55-1.02); GFR 54.75; GLOBULINA 2.5 G/DL (2.4-3.5); GLUCOSE FASTING 92.0 mg/dL (65-100); OSMOLALITY SERUM 271.0 MOSM/KG (275-295)
[2024-12-05] MEDS ORDERED: LACTOBACILLUS ACIDOPHILUS 1 CAP CAP PO SCH (09:00)
[2024-12-05] MEDS ORDERED: IRON FUM,PS/FOLIC/BCOMP,C NO.9 1 CAP CAPSULE PO SCH (09:00)
[2024-12-05] MEDS ORDERED: BUMETANIDE 1 MG TABLET PO SCH (09:00)
[2024-12-05 10:01] VITALS: BP 126/68; O2SAT 93
[2024-12-05] MEDS ORDERED: CEFAZOLIN SODIUM 2,000 MG in 0.9 % SODIUM CHLORIDE 100 ML IV SCH (17:00)
[2024-12-05 18:07] VITALS: BP 154/84
[2024-12-05 18:10] VITALS: BP 159/65
[2024-12-06 03:29] VITALS: BP 128/73; O2SAT 95
[2024-12-06 08:15] VITALS: BP 128/68; O2SAT 100
[2024-12-06] MEDS ORDERED: PANTOPRAZOLE SODIUM 40 MG TABLET.DR PO SCH (09:00)
[2024-12-06] MEDS ORDERED: SOD FERRIC GLUC COMPLX/SUCROSE 62.5 MG in 0.9 % SODIUM CHLORIDE 50 ML IV SCH (09:06)
[2024-12-06 16:30] VITALS: BP 101/63; O2SAT 93
[2024-12-07 06:22] LABS: BASO % 0.6 % (0.1-1.2); EOS # 0.21 (0.04-0.54); EOS % 3.2 % (0.7-7.0); LYMPH # 1.03 (1.18-3.74); LYMPH % 15.7 % (19.3-53.1); MEAN PLATELET VOLUME 11.80 fl (9.4-12.4); MONO # 0.67 (0.24-0.82); MONO % 10.2 % (4.7-12.5); NEUT # 4.59 (1.56-6.13); NEUT % 70.0 % (34.0-71.1); RED CELL DISTRIBUTION WIDTH 15.6 % (11.6-14.4)
[2024-12-07 07:04] LABS: ALT/SGPT 11.0 U/L (12-78); AST/SGOT 9.0 U/L (15-37); BILIRUBIN TOTAL 1.23 mg/dL (0.3-1.2); BUN CREA RATIO 17.0 (7.0-25.0); CREATININE SERUM 0.86 mg/dL (0.55-1.02); GFR 63.65; GLOBULINA 2.6 G/DL (2.4-3.5); GLUCOSE FASTING 92.0 mg/dL (65-100); OSMOLALITY SERUM 276.0 MOSM/KG (275-295)
[2024-12-07 08:57] VITALS: BP 150/60; O2SAT 99
[2024-12-07] MEDS ORDERED: POLYETHYLENE GLYCOL 3350 17 GM BLIST.PACK PO SCH (09:00)
[2024-12-07 13:50] LABS: FOLIC ACID 6.28 ng/ml (4.78-20)
[2024-12-07 16:19] VITALS: BP 128/57; O2SAT 94
[2024-12-07] MEDS ORDERED: AMINO ACIDS/PROTEIN HYDROLYS 30 ML BLIST.PACK PO SCH (20:02)
[2024-12-07 23:00] VITALS: BP 149/66; O2SAT 94
[2024-12-08 08:04] VITALS: BP 168/70; O2SAT 96
[2024-12-08 17:09] VITALS: BP 137/63; O2SAT 93
[2024-12-08 23:00] VITALS: BP 167/65; O2SAT 94
[2024-12-09 08:40] VITALS: BP 148/62; O2SAT 98
[2024-12-09 17:15] VITALS: BP 140/63
[2024-12-10 02:14] VITALS: BP 125/55; O2SAT 95
[2024-12-10 06:17] LABS: BASO % 0.4 % (0.1-1.2); EOS # 0.28 (0.04-0.54); EOS % 3.8 % (0.7-7.0); LYMPH # 1.28 (1.18-3.74); LYMPH % 17.5 % (19.3-53.1); MEAN PLATELET VOLUME 11.80 fl (9.4-12.4); MONO # 0.84 (0.24-0.82); MONO % 11.5 % (4.7-12.5); NEUT # 4.85 (1.56-6.13); NEUT % 66.3 % (34.0-71.1); RED CELL DISTRIBUTION WIDTH 15.8 % (11.6-14.4)
[2024-12-10 06:55] LABS: ALT/SGPT 8.0 U/L (12-78); AST/SGOT 15.0 U/L (15-37); BILIRUBIN TOTAL 2.74 mg/dL (0.3-1.2); BUN CREA RATIO 18.0 (7.0-25.0); CREATININE SERUM 0.84 mg/dL (0.55-1.02); GFR 65.4; GLOBULINA 2.7 G/DL (2.4-3.5); GLUCOSE FASTING 83.0 mg/dL (65-100); OSMOLALITY SERUM 276.0 MOSM/KG (275-295)
[2024-12-10 08:52] VITALS: BP 133/60; O2SAT 95
[2024-12-10 13:36] LABS: ob POSITIVE (NEGATIVE)
[2024-12-10] MEDS ORDERED: PIPERACILLIN/TAZOBACTAM SODIUM 3.375 GM in DEXTROSE 5 % IN WATER 100 ML IV SCH (18:00)
[2024-12-10 18:25] VITALS: BP 174/70
[2024-12-10 19:00] VITALS: BP 147/71; O2SAT 95
[2024-12-10] MEDS ORDERED: VANCOMYCIN HCL 5 MG/ML REDILUIDO IV SCH (21:00)
[2024-12-10] MEDS ORDERED: FAMOTIDINE/PF 20 MG/2 ML VIAL IV PUSH SCH (21:00)
[2024-12-11] VITALS: BP 137/74; O2SAT 95
[2024-12-11] MEDS ORDERED: LACTOBACILLUS ACIDOPHILUS 1 CAP CAP PO SCH (09:00)
[2024-12-11] MEDS ORDERED: PANTOPRAZOLE SODIUM 40 MG TABLET.DR PO SCH (09:00)
[2024-12-11 09:05] VITALS: BP 122/59
[2024-12-11 16:30] VITALS: BP 134/54; O2SAT 95
[2024-12-11] MEDS ORDERED: LINEZOLID IN DEXTROSE 5% 300 ML IV SCH (21:00)
[2024-12-12 02:17] VITALS: BP 146/68; O2SAT 94
[2024-12-12 06:14] LABS: BASO % 0.3 % (0.1-1.2); EOS # 0.20 (0.04-0.54); EOS % 3.2 % (0.7-7.0); LYMPH # 0.93 (1.18-3.74); LYMPH % 14.9 % (19.3-53.1); MEAN PLATELET VOLUME 12.00 fl (9.4-12.4); MONO # 0.65 (0.24-0.82); MONO % 10.4 % (4.7-12.5); NEUT # 4.43 (1.56-6.13); NEUT % 70.7 % (34.0-71.1)
[2024-12-12 08:21] VITALS: BP 153/74
[2024-12-12 17:58] VITALS: BP 145/70
[2024-12-13 00:17] LABS: ALT/SGPT 19.0 U/L (12-78); AST/SGOT 21.0 U/L (15-37); BILIRUBIN TOTAL 1.55 mg/dL (0.3-1.2); BILIRUBIN,CONJUGATED 0.48 mg/dL (0.0-0.2); BUN CREA RATIO 20.0 (7.0-25.0); CREATININE SERUM 1.21 mg/dL (0.55-1.02); GFR 42.92; GLUCOSE FASTING 157.0 mg/dL (65-100); OSMOLALITY SERUM 290.0 MOSM/KG (275-295)
[2024-12-13 00:20] LABS: ob NEGATIVE (NEGATIVE)
[2024-12-13 00:29] LABS: RED CELL DISTRIBUTION WIDTH 15.8 % (11.6-14.4)
[2024-12-13 00:31] VITALS: BP 155/85; O2SAT 99
[2024-12-13 06:53] LABS: BUN CREA RATIO 30.0 (7.0-25.0); CREATININE SERUM 0.79 mg/dL (0.55-1.02); GFR 70.2; OSMOLALITY SERUM 282.0 MOSM/KG (275-295)
[2024-12-13 06:54] LABS: GLUCOSE FASTING 370.0 mg/dL (65-100)
[2024-12-13 08:47] VITALS: BP 158/72
[2024-12-13 09:53] LABS: BASO % 1.1 % (0.1-1.2); EOS # 0.21 (0.04-0.54); EOS % 3.2 % (0.7-7.0); LYMPH # 0.87 (1.18-3.74); LYMPH % 13.3 % (19.3-53.1); MEAN PLATELET VOLUME 12.40 fl (9.4-12.4); MONO # 0.58 (0.24-0.82); MONO % 8.8 % (4.7-12.5); NEUT # 4.78 (1.56-6.13); NEUT % 72.8 % (34.0-71.1); RED CELL DISTRIBUTION WIDTH 15.9 % (11.6-14.4)
[2024-12-13 10:26] LABS: ALT/SGPT 9.0 U/L (12-78); AST/SGOT 14.0 U/L (15-37); BILIRUBIN TOTAL 2.29 mg/dL (0.3-1.2); BILIRUBIN,CONJUGATED 0.46 mg/dL (0.0-0.2); BUN CREA RATIO 28.0 (7.0-25.0); CREATININE SERUM 0.89 mg/dL (0.55-1.02); GFR 61.18; GLUCOSE FASTING 130.0 mg/dL (65-100); OSMOLALITY SERUM 284.0 MOSM/KG (275-295)
[2024-12-13 17:39] VITALS: BP 151/69
[2024-12-14 02:16] VITALS: BP 152/90; O2SAT 96
[2024-12-14 04:57] LABS: BASO % 0.6 % (0.1-1.2); EOS # 0.22 (0.04-0.54); EOS % 3.2 % (0.7-7.0); LYMPH # 1.08 (1.18-3.74); LYMPH % 15.8 % (19.3-53.1); MEAN PLATELET VOLUME 12.40 fl (9.4-12.4); MONO # 0.70 (0.24-0.82); MONO % 10.2 % (4.7-12.5); NEUT # 4.76 (1.56-6.13); NEUT % 69.5 % (34.0-71.1); RED CELL DISTRIBUTION WIDTH 15.7 % (11.6-14.4)
[2024-12-14 05:32] LABS: ALT/SGPT 11.0 U/L (12-78); AST/SGOT 11.0 U/L (15-37); BILIRUBIN TOTAL 2.21 mg/dL (0.3-1.2); BUN CREA RATIO 35.0 (7.0-25.0); CREATININE SERUM 0.77 mg/dL (0.55-1.02); GFR 72.31; GLOBULINA 2.9 G/DL (2.4-3.5); GLUCOSE FASTING 99.0 mg/dL (65-100); OSMOLALITY SERUM 283.0 MOSM/KG (275-295)
[2024-12-14 08:38] VITALS: BP 151/62
[2024-12-14 20:37] VITALS: BP 127/59
[2024-12-15 02:19] VITALS: BP 177/70; O2SAT 93
[2024-12-15 08:42] VITALS: BP 147/65; O2SAT 98
[2024-12-15 15:30] VITALS: BP 136/68; O2SAT 96
[2024-12-16 01:02] VITALS: BP 151/81; O2SAT 98
[2024-12-16 09:19] VITALS: BP 131/57; O2SAT 98
[2024-12-16 16:38] VITALS: BP 125/59; O2SAT 96
[2024-12-16] MEDS ORDERED: FAMOTIDINE/PF 20 MG/2 ML VIAL IV PUSH SCH (21:00)
[2024-12-17 01:43] VITALS: BP 134/56; O2SAT 94
[2024-12-17 06:54] LABS: BUN CREA RATIO 21.0 (7.0-25.0); CREATININE SERUM 1.0 mg/dL (0.55-1.02); GFR 53.48; GLUCOSE FASTING 89.0 mg/dL (65-100); OSMOLALITY SERUM 282.0 MOSM/KG (275-295)
[2024-12-17 08:48] VITALS: BP 118/54; O2SAT 96
[2024-12-17 16:00] VITALS: BP 122/64; O2SAT 95
[2024-12-18 00:31] VITALS: BP 143/83; O2SAT 96
[2024-12-18 11:00] VITALS: BP 134/68; O2SAT 95
[2024-12-18 16:24] VITALS: BP 120/72
[2024-12-19 03:06] VITALS: BP 106/56; O2SAT 94
[2024-12-19 08:24] VITALS: BP 125/69; O2SAT 96
[2024-12-19] MEDS ORDERED: FLUTICASONE PROPIONATE 50 MCG SPRAY NASAL SCH (17:00)
[2024-12-19 17:02] VITALS: BP 124/66; O2SAT 97
[2024-12-20 02:52] VITALS: BP 141/72; O2SAT 96
[2024-12-20] MEDS ORDERED: DOXAZOSIN MESYLA4 MG PO (07:07)
[2024-12-20] MEDS ORDERED: SPIRONOLACTONE25 MG PO (07:08)
[2024-12-20] MEDS ORDERED: HYDRALAZINE HCL25 MG PO (07:09)
[2024-12-20] MEDS ORDERED: GABAPENTIN800 MG PO (07:09)
[2024-12-20] MEDS ORDERED: BUMETANIDE1 MG PO (07:10)
[2024-12-20] MEDS ORDERED: INTESTINEX680 M1 PO (07:11)
[2024-12-20] MEDS ORDERED: FLONASE16 GM NASAL (07:11)
[2024-12-20] MEDS ORDERED: HYDROCORTISONE5 MG PO (07:12)
[2024-12-20] MEDS ORDERED: PROTEINEX-18 LI30 ML PO (07:18)
[2024-12-20] MEDS ORDERED: ZOLPIDEM TARTRAT5 MG PO (07:22)
[2024-12-20] MEDS ORDERED: B Complex PO (07:22)
[2024-12-20] MEDS ORDERED: TOPROL XL50 M1 PO (07:22)
[2024-12-20] MEDS ORDERED: NeuRONTin 400MG CAPS PO (07:22)
[2024-12-20 08:38] VITALS: BP 114/60; O2SAT 94
== END 2024-12-20 12:50 | disposition home or self-care (01) | DRG 264 ==
LOC: ER 13:34 → MEDI 20:44
PROVIDERS: General Practice; Internal Medicine; Internal Medicine Infectious Disease; Specialist/Technologist, Other Nephrology; ADMIT Internal Medicine; ATTEND Internal Medicine
PROC: 30233N1 Transfusion of Nonautologous Red Blood Cells into Peripheral Vein, Percutaneous Approach (ICD-10-PCS; 2024-12-03)
PROC: 02HV33Z Insertion of Infusion Device into Superior Vena Cava, Percutaneous Approach (ICD-10-PCS; 2024-12-03)
PROC: B548ZZA Ultrasonography of Superior Vena Cava, Guidance (ICD-10-PCS; 2024-12-03)
PROC: B246ZZZ Ultrasonography of Right and Left Heart (ICD-10-PCS; 2024-12-03)
PROC: 30243N1 Transfusion of Nonautologous Red Blood Cells into Central Vein, Percutaneous Approach (ICD-10-PCS; 2024-12-08)
PROC: 0JBP0ZZ Excision of Left Lower Leg Subcutaneous Tissue and Fascia, Open Approach (ICD-10-PCS; principal; 2024-12-12)
PROC: 0JBP0ZZ Excision of Left Lower Leg Subcutaneous Tissue and Fascia, Open Approach (ICD-10-PCS; 2024-12-19)
DX: I87.2 Venous insufficiency (chronic) (peripheral) (principal); L03.116 Cellulitis of left lower limb; L97.929 Non-pressure chronic ulcer of unspecified part of left lower leg with unspecified severity; L02.416 Cutaneous abscess of left lower limb; K52.1 Toxic gastroenteritis and colitis; T36.0X5A Adverse effect of penicillins, initial encounter; S80.812A Abrasion, left lower leg, initial encounter; E88.09 Other disorders of plasma-protein metabolism, not elsewhere classified; I48.91 Unspecified atrial fibrillation; D50.8 Other iron deficiency anemias; D63.1 Anemia in chronic kidney disease; R60.0 Localized edema; W22.8XXA Striking against or struck by other objects, initial encounter; I13.10 Hypertensive heart and chronic kidney disease without heart failure, with stage 1 through stage 4 chronic kidney disease, or unspecified chronic kidney disease; N18.2 Chronic kidney disease, stage 2 (mild); J44.89 Other specified chronic obstructive pulmonary disease; G47.30 Sleep apnea, unspecified; E78.5 Hyperlipidemia, unspecified; Z95.818 Presence of other cardiac implants and grafts; B95.61 Methicillin susceptible Staphylococcus aureus infection as the cause of diseases classified elsewhere; Y92.128 Other place in nursing home as the place of occurrence of the external cause; Z88.1 Allergy status to other antibiotic agents